=== PATIENT | female | born 1995 | race Caucasian/White ===

== ENCOUNTER 2020-03-01 19:39 | Emergency (ER) | payer OTHER, SELFPAY ==
--- NOTE | ~2020-03-01 | CT_ITS ---
EXAMINATION: CT abdomen pelvis w con EXAM DATE: 03/01/2020 22:01 INDICATION: Lower abdominal pain. TECHNIQUE: Spiral CT of the abdomen and pelvis was performed following intravenous injection of 100 m L Omnipaque 350. Axial, coronal and sagittal images were reviewed. The dose-length product (DLP) fo r this examination was 802.11 mGy-cm. The exposure was tailored according to patient size (auto mA e xposure control), and iterative reconstruction (ASIR) was used as additional dose reduction technique . There is no prior study for comparison. FINDINGS: The liver, spleen, adrenal glands and pancreas are unremarkable. Gallbladder is unremarkab le. No biliary obstruction. Portal and splenic veins are patent. Kidneys enhance symmetrically. T here is no hydronephrosis. The uterus is anteverted and morphologically normal. The bladder is un remarkable. There is no retroperitoneal or pelvic lymphadenopathy. The appendix is not positively visualized. There is no pericecal inflammatory change to suggest appe ndicitis. The stomach and small bowel are unremarkable. There is expected amount of colonic stool. No free intraperitoneal gas. The heart is normal in size. There are no pericardial or pleural e ffusions. The lung bases are unremarkable. The bones are unremarkable. IMPRESSION: 1. Unremarkable CT abdomen pelvis examination. Reviewed, dictated and finalized at location A.
[2020-03-01 19:46] VITALS: BP 135/79; PULSE 93; RESP 19; TEMP 36.8; O2SAT 99
[2020-03-01 20:01] LABS: Basophils Absolute Auto 0.1 K/mm3 (0.0-0.1); Basophils Percent Auto 0.6 % (0.2-1.2); Eosinophils Absolute Auto 0.2 K/mm3 (0-0.3); Eosinophils Percent Auto 1.9 % (0-4.4); Hematocrit 44.5 % (37.0-47.0); Hemoglobin 13.9 g/dL (12.0-15.0); Immature Granulocyte Absolute 0.03 K/mm3 (0.00-0.031); Immature Granulocyte Percent A 0.3 % (0-0.5); Lymphocytes Absolute Auto 2.95 K/mm3 (0.9-3.2); Lymphocytes Percent Auto 30.6 % (18.3-44.2); Mean Corpuscular HGB Conc 31.2 g/dl (32-36); Mean Corpuscular Hemoglobin 25.4 pg (26-34); Mean Corpuscular Volume 81.2 fl (80-100); Mean Platelet Volume 10.4 fl (7.4-10.4); Monocytes Absolute Auto 0.7 K/mm3 (0.1-0.6); Monocytes Percent Auto 7.5 % (2.6-8.5); Neutrophils Absolute Auto 5.7 K/mm3 (1.3-6.7); Neutrophils Percent Auto 59.1 % (45.5-73.1); Platelet Count Result 258 k/mm3 (150-375); Red Blood Count 5.48 M/mm3 (4.2-5.4); Red Cell Distribution Width 13.3 % (11.5-14.5); White Blood Count 9.6 K/mm3 (4.5-10.0)
[2020-03-01 20:14] LABS: Alanine Aminotransferase 13 U/L (4-35); Albumin Level 4.3 g/dL (3.5-5.1); Alkaline Phosphatase 85 U/L (38-126); Anion Gap 10.9 mmol/L (7-16); Aspartate Amino Transferase 18 U/L (14-36); Bilirubin,Total 0.3 mg/dL (0.2-1.3); Blood Urea Nitrogen 12 mg/dL (7-17); Calcium 9.3 mg/dL (8.4-10.2); Carbon Dioxide 27 mmol/L (22-30); Chloride 105 mmol/L (98-107); Estimated Glomerular Filt Rate > 60; Glucose 86 mg/dL (65-105); Lipase 45 U/L (23-300); Potassium 3.9 mmol/L (3.4-5.0); Sodium 139 mmol/L (137-145)
--- NOTE | 2020-03-01 20:18 | ED.ABDPAIN ---
HPI - Abdominal Pain General Chief Complaint: Abdominal Pain Stated Complaint: abdominal pain Time Seen by Provider: 03/01/20 20:17 History of Present Illness HPI narrative: Abdominal pain for the past couple of month. Originally lower then moved up the abdomen. Now generalized. No exacerbating or alleviating factors. No nausea, vomiting, diarrhea, constipation. She has a streong family h/o gall bladder disease. Related Data Allergies Allergy/AdvReac Type Severity Reaction Status Date / Time AMOXICILLIN TRIHYDRATE Allergy Severe Rash Uncoded 03/01/20 20:16 Review of Systems Review of Systems: All systems reviewed & are unremarkable except as noted in HPI and below Constitutional: Constitutional: Reports fever(s) Cardiovascular: Cardiovascular: Reports chest pain Respiratory: Respiratory: Denies dyspnea Gastrointestinal: Gastrointestinal: Reports abdominal pain, Denies constipation, Denies diarrhea, Denies nausea and Denies vomiting Genitourinary: Genitourinary: Denies hematuria and Denies dysuria Musculoskeletal: Musculoskeletal: Denies back pain [facility] Social History Social History (Updated 03/01/20 @ 21:20 by Montrell Kidd MD) Smoking status: Never smoker Exam Const: General: healthy appearing, no acute distress and alert Orientation/consciousness: patient oriented x3 HENMT: Head: normal to inspection Neck: Neck: normal visual inspection and no lymphadenopathy Chest: Chest palpation & inspection: no tenderness Resp: Effort & Inspection: normal respiratory effort Auscultation: clear to auscultation bilaterally, no rales, no rhonchi and no wheezes Cardio: Jugular venous distension: no JVD Rate: regular rate Rhythm: regular rhythm Heart sounds: no murmurs GI: Inspection: non-distended GI Palp: Yes Soft to palpation and No Tenderness to palpation present (GI) Skin: General skin exam: normal color Neuro: General: patient oriented x3 and moves all extremities Speech: normal speech Extrem: General: no edema Psych: Appearance: well kempt Affect: normal affect Course Vital Signs Vital signs: Vital Signs Temperature 36.8 C 03/01/20 19:46 Pulse Rate 93 03/01/20 19:46 Respiratory Rate 19 03/01/20 19:46 Blood Pressure 135/79 03/01/20 19:46 Pulse Oximetry 99 03/01/20 19:46 Temperature 36.8 C 03/01/20 19:46 Pulse Rate 75 03/01/20 23:23 Respiratory Rate 16 03/01/20 23:23 Blood Pressure 111/75 03/01/20 23:23 Pulse Oximetry 99 03/01/20 23:23 MDM - Abdominal Pain Differential Diagnosis Differential diagnosis: Likely other (GERD, IBS, biliary colic) Medical Records Attestation: I reviewed the patient's medical records. Lab Data Attestation: I reviewed the patient's lab results. Result diagrams: 03/01/20 19:49 03/01/20 19:49 Labs: Lab Results 03/01/20 03/01/20 03/01/20 Range/Units 19:49 19:49 20:07 WBC 9.6 (4.5-10.0) K/mm3 RBC 5.48 H (4.2-5.4) M/mm3 Hgb 13.9 (12.0-15.0) g/dL Hct 44.5 (37.0-47.0) % MCV 81.2 (80-100) fl MCH 25.4 L (26-34) pg MCHC 31.2 L (32-36) g/dl RDW 13.3 (11.5-14.5) % Plt Count 258 (150-375) k/mm3 MPV 10.4 (7.4-10.4) fl Immature Gran % (Auto) 0.3 (0-0.5) % Neut % (Auto) 59.1 (45.5-73.1) % Lymph % (Auto) 30.6 (18.3-44.2) % [place] % (Auto) 7.5 (2.6-8.5) % Eos % (Auto) 1.9 (0-4.4) % Baso % (Auto) 0.6 (0.2-1.2) % Lymph # (Auto) 2.95 (0.9-3.2) K/mm3 [place] # (Auto) 0.7 H (0.1-0.6) K/mm3 Eos # (Auto) 0.2 (0-0.3) K/mm3 Baso # (Auto) 0.1 (0.0-0.1) K/mm3 Abs Immat Gran (auto) 0.03 (0.00-0.031) K/mm3 Absolute Neuts (auto) 5.7 (1.3-6.7) K/mm3 Absolute Nucleated RBC 0.0 (0.0-0.012) K/mm3 Nucleated RBC % 0.0 (0.0-0.2) % Sodium 139 (137-145) mmol/L Potassium 3.9 (3.4-5.0) mmol/L Chloride 105 (98-107) mmol/L Carbon Dioxide 27 (22-30) mmol/L Anion Gap 10.9 (7-16) mmo
[2020-03-01 20:20] VITALS: PULSE 75; RESP 18; O2SAT 100
[2020-03-01 20:22] VITALS: BP 120/79
[2020-03-01 20:23] LABS: Add Urine Microscopic? YES; Appearance Urine Clear (Clear); Bacteria Urine Trace /hpf; Bilirubin Urine Negative (Negative); Blood Urine 2+ (Negative); Color Urine Yellow (Yellow); Glucose Urine UA Negative (Negative); Ketones Urine Negative (Negative); Leukocyte Esterase Ur Negative LEU/UL (Negative); Mucus Urine Rare /lpf; Nitrate Urine Negative (Negative); Protein Urine Negative (Negative); Specific Grav Ur 1.023 (1.001-1.035); Squamous Epithelial Cell Urine Many /hpf (Few); Urobilinogen Urine Negative mg/dL (<2.0); WBC Urine 0-3 /hpf
[2020-03-01 22:28] VITALS: BP 116/74; PULSE 67; RESP 18; O2SAT 99
[2020-03-01] MEDS: DICYCLOMINE HCL INJ 20 MG/2 ML VIAL IM (22:35)
[2020-03-01 23:23] VITALS: BP 111/75; PULSE 75; RESP 16; O2SAT 99
== END 2020-03-01 23:24 | disposition home or self-care (01) ==
PROVIDERS: Emergency Provider Emergency Medicine
DX: R10.84 Generalized abdominal pain (principal)
CPT/HCPCS: 36415; 74177; 80053; 81001; 81025; 83690; 85025; 96372; 99284; A9270; J0500; Q9967

== ENCOUNTER 2020-10-08 20:26 | Emergency (ER) | payer OTHER, SELFPAY ==
--- NOTE | ~2020-10-08 | CT_ITS ---
EXAMINATION: CT abdomen pelvis w con DATE: 10/08/2020 21:32 INDICATION: Right lower quadrant abdominal pain. TECHNIQUE: Computed tomography (CT) of the abdomen and pelvis was performed with 100 mL Omnipaque 350 intravenous contrast. Automated exposure control and iterative reconstruction technique were employe d. The dose-length product was 1006.49 mGy-cm. COMPARISON: CT abdomen and pelvis 03/01/2020 FINDINGS: The visualized portions of the lung bases are clear without pneumonia or pleural effusion. The heart size is normal. No pericardial effusion. The liver, gallbladder, spleen, pancreas, adrenal glands, and kidneys are normal. There is a 4.0 cm cyst in right ovary, likely a follicular cyst. Ther e is fat stranding around an epiploic appendage of ascending colon, consistent with epiploic appendag itis. The appendix is normal. There are no pathologically enlarged lymph nodes. There is no free intr aperitoneal fluid. There is mild lumbar spondylosis. IMPRESSION: 1. Epiploic appendagitis of the ascending colon. Reviewed, dictated and finalized at location A.
[2020-10-08 20:31] VITALS: BP 107/90; PULSE 98; RESP 16; TEMP 36.8; O2SAT 97
--- NOTE | 2020-10-08 20:42 | ED.ABDPAIN ---
HPI - Abdominal Pain General Chief Complaint: Abdominal Pain Stated Complaint: RLQ pain Time Seen by Provider: 10/08/20 20:33 History of Present Illness HPI narrative: Moderate RLQ pain for the past 2 days. Started after lifting a friend to pop their back. She reports that she felt a pop in her abdomen ever since. It is worse with moving and lying flat on her back. denies any associated symptoms. No prior episodes. Related Data Allergies Allergy/AdvReac Type Severity Reaction Status Date / Time AMOXICILLIN TRIHYDRATE Allergy Severe Rash Uncoded 03/01/20 20:16 Review of Systems Review of Systems: All systems reviewed & are unremarkable except as noted in HPI and below Constitutional: Constitutional: Denies fever(s) Cardiovascular: Cardiovascular: Reports no additional cardiovascular complaints Respiratory: Respiratory: Reports no additional respiratory complaints Gastrointestinal: Gastrointestinal: Reports abdominal pain, Denies constipation, Denies diarrhea, Denies nausea and Denies vomiting Genitourinary: Genitourinary: Denies hematuria and Denies dysuria Neurologic: Reports system reviewed and no additional complaints, except as documented [facility] Social History Social History Smoking status: Never smoker Exam Const: General: healthy appearing, no acute distress and alert Orientation/consciousness: patient oriented x3 HENMT: Head: normal to inspection Neck: Neck: normal visual inspection Resp: Effort & Inspection: normal respiratory effort Auscultation: clear to auscultation bilaterally, no rales, no rhonchi and no wheezes Cardio: Jugular venous distension: no JVD Rate: regular rate Rhythm: regular rhythm Heart sounds: no murmurs GI: Inspection: non-distended GI Palp: Yes Soft to palpation, Yes Tenderness to palpation present (GI) (RLQ), No Guarding due to palpation present (GI) and No Rebound tenderness present Auscultation: normal bowel sounds Skin: General skin exam: normal color Neuro: General: patient oriented x3 and moves all extremities Speech: normal speech Extrem: General: no edema Psych: Appearance: well kempt Affect: normal affect Course Vital Signs Vital signs: Vital Signs Temperature 36.8 C 10/08/20 20:31 Pulse Rate 98 10/08/20 20:31 Respiratory Rate 16 10/08/20 20:31 Blood Pressure 107/90 10/08/20 20:31 Pulse Oximetry 97 10/08/20 20:31 Temperature 36.8 C 10/08/20 21:28 Pulse Rate 88 10/08/20 22:26 Respiratory Rate 18 10/08/20 22:26 Blood Pressure 112/79 10/08/20 22:26 Pulse Oximetry 100 10/08/20 22:26 MDM - Abdominal Pain Differential Diagnosis Differential diagnosis: Likely acute appendicitis, calculus of kidney, constipation and pancreatitis Medical Records Attestation: I reviewed the patient's medical records. Lab Data Attestation: I reviewed the patient's lab results. Result diagrams: 10/08/20 20:45 10/08/20 20:45 Labs: Lab Results 10/08/20 10/08/20 10/08/20 Range/Units 20:45 20:45 21:08 WBC 13.0 H (4.5-10.0) K/mm3 RBC 5.47 H (4.2-5.4) M/mm3 Hgb 14.1 (12.0-15.0) g/dL Hct 44.4 (37.0-47.0) % MCV 81.2 (80-100) fl MCH 25.8 L (26-34) pg MCHC 31.8 L (32-36) g/dl RDW 13.7 (11.5-14.5) % Plt Count 272 (150-375) k/mm3 MPV 9.9 (7.4-10.4) fl Immature Gran % (Auto) 0.5 (0-0.5) % Neut % (Auto) 65.6 (45.5-73.1) % Lymph % (Auto) 23.1 (18.3-44.2) % [place] % (Auto) 8.2 (2.6-8.5) % Eos % (Auto) 2.1 (0-4.4) % Baso % (Auto) 0.5 (0.2-1.2) % Lymph # (Auto) 2.99 (0.9-3.2) K/mm3 [place] # (Auto) 1.1 H (0.1-0.6) K/mm3 Eos # (Auto) 0.3 (0-0.3) K/mm3 Baso # (Auto) 0.1 (0.0-0.1) K/mm3 Abs Immat Gran (auto) 0.07 H (0.00-0.031) K/mm3 Absolute Neuts (auto) 8.5 H (1.3-6.7) K/mm3 Absolute Nucleated RBC 0.0 (0.0-0.012) K/mm3 Nucleated RBC % 0.2 (0.0-0
[2020-10-08 20:50] LABS: Basophils Absolute Auto 0.1 K/mm3 (0.0-0.1); Basophils Percent Auto 0.5 % (0.2-1.2); Eosinophils Absolute Auto 0.3 K/mm3 (0-0.3); Eosinophils Percent Auto 2.1 % (0-4.4); Hematocrit 44.4 % (37.0-47.0); Hemoglobin 14.1 g/dL (12.0-15.0); Immature Granulocyte Absolute 0.07 K/mm3 (0.00-0.031); Immature Granulocyte Percent A 0.5 % (0-0.5); Lymphocytes Absolute Auto 2.99 K/mm3 (0.9-3.2); Lymphocytes Percent Auto 23.1 % (18.3-44.2); Mean Corpuscular HGB Conc 31.8 g/dl (32-36); Mean Corpuscular Hemoglobin 25.8 pg (26-34); Mean Corpuscular Volume 81.2 fl (80-100); Mean Platelet Volume 9.9 fl (7.4-10.4); Monocytes Absolute Auto 1.1 K/mm3 (0.1-0.6); Monocytes Percent Auto 8.2 % (2.6-8.5); Neutrophils Absolute Auto 8.5 K/mm3 (1.3-6.7); Neutrophils Percent Auto 65.6 % (45.5-73.1); Nucleated Red Blood Cells Perc 0.2 % (0.0-0.2); Platelet Count Result 272 k/mm3 (150-375); Red Blood Count 5.47 M/mm3 (4.2-5.4); Red Cell Distribution Width 13.7 % (11.5-14.5)
[2020-10-08] MEDS: KETOROLAC 30 MG/ML VIAL (*BKC) IV PUSH (20:58)
[2020-10-08 21:01] LABS: Alanine Aminotransferase 15 U/L (4-35); Albumin Level 4.2 g/dL (3.5-5.1); Alkaline Phosphatase 94 U/L (38-126); Anion Gap 6 mmol/L (8-16); Aspartate Amino Transferase 19 U/L (14-36); Bilirubin,Total 0.2 mg/dL (0.2-1.3); Blood Urea Nitrogen 9 mg/dL (7-17); Carbon Dioxide 31 mmol/L (22-30); Chloride 103 mmol/L (98-107); Estimated CRCL calculation 147 ml/min; Estimated Glomerular Filt Rate > 60; Glucose 92 mg/dL (65-105); Lipase 59 U/L (23-300); Potassium 3.7 mmol/L (3.4-5.0); Sodium 140 mmol/L (137-145)
[2020-10-08 21:19] LABS: Add Urine Microscopic? YES; Appearance Urine Clear (Clear); Bacteria Urine Trace /hpf; Bilirubin Urine Negative (Negative); Blood Urine Negative (Negative); Color Urine Yellow (Yellow); Glucose Urine UA Negative (Negative); Ketones Urine Negative (Negative); Leukocyte Esterase Ur Negative LEU/UL (Negative); Mucus Urine Rare /lpf; Nitrate Urine Negative (Negative); Protein Urine Negative (Negative); RBC Urine 0-2 /hpf (0-2); Specific Grav Ur 1.015 (1.001-1.035); Squamous Epithelial Cell Urine Few /hpf (Few); Urobilinogen Urine Negative mg/dL (<2.0); WBC Urine 0-3 /hpf
[2020-10-08 21:28] VITALS: TEMP 36.8
[2020-10-08 21:31] VITALS: BP 109/67; PULSE 95; RESP 18; O2SAT 96
[2020-10-08 22:26] VITALS: BP 112/79; PULSE 88; RESP 18; O2SAT 100
== END 2020-10-08 22:27 | disposition home or self-care (01) ==
PROVIDERS: Emergency Provider Emergency Medicine; PCP Physician Assistant
DX: K65.4 Sclerosing mesenteritis (principal); K63.89 Other specified diseases of intestine
CPT/HCPCS: 36415; 74177; 80053; 81001; 81025; 83690; 85025; 96374; 99284; J1885; Q9967

== ENCOUNTER 2021-01-15 13:11 | Outpatient (CLI) | payer OTHER, SELFPAY | END 2021-01-15 13:12 | disposition home or self-care (01) | LOC: ANHAUDIO 13:12 | PROVIDERS: PCP Physician Assistant; Visit Provider Otolaryngology | DX: H91.90 Unspecified hearing loss, unspecified ear (principal) | CPT/HCPCS: 92552; 92556; 92567 ==

== ENCOUNTER 2022-03-16 20:04 | Emergency (ER) | payer OTHER, SELFPAY ==
--- NOTE | ~2022-03-16 | CT_ITS ---
EXAMINATION: CT abdomen pelvis w con DATE: 03/16/2022 21:57 INDICATION: Right upper quadrant abdominal pain. TECHNIQUE: Computed tomography (CT) of the abdomen and pelvis was performed with 100 mL Omnipaque 350 intravenous contrast. Automated exposure control and iterative reconstruction technique were employe d. The dose-length product was 1112.07 mGy-cm. COMPARISON: CT abdomen and pelvis 10/08/2020 FINDINGS: The visualized portions of the lung bases are clear without pneumonia or pleural effusion. The heart size is normal. No pericardial effusion. The liver, gallbladder, spleen, pancreas, adrenal glands, and kidneys are normal. There are no dilated loops of bowel. The appendix is normal. There ar e no pathologically enlarged lymph nodes. There is no free intraperitoneal fluid. The bones are unrem arkable. IMPRESSION: 1. No etiology for the patient's symptoms. Reviewed, dictated and finalized at location A.
[2022-03-16 20:05] VITALS: BP 111/91; PULSE 94; RESP 16; TEMP 36.1; O2SAT 100
--- NOTE | 2022-03-16 20:54 | ED.ABDPAIN ---
HPI - Abdominal Pain General Chief Complaint: Abdominal Pain Stated Complaint: stomach is hurting bad Time Seen by Provider: 03/16/22 20:43 History of Present Illness HPI narrative: 26-year-old female presents emergency room for evaluation of right upper quadrant pain has been present for 2 weeks. Patient states the pain is worse after eating. Does not radiate. Denies fevers. Patient states she has a family history of gallbladder disease. Pain is associated with nausea. Denies any diarrhea or constipation. Related Data Allergies Allergy/AdvReac Type Severity Reaction Status Date / Time AMOXICILLIN TRIHYDRATE Allergy Severe Rash Uncoded 03/16/22 20:04 Review of Systems Review of Systems: CONSTITUTIONAL: Denies fever, chills, or sweats. EYES: Denies visual changes, redness, or discharge. ENT: Denies rhinorrhea, congestion, sore throat, or otalgia. CARDIOVASCULAR: Denies chest pain, palpitations, or edema. RESPIRATORY: Denies cough or dyspnea. GASTROINTESTINAL: Reports right upper quadrant pain and nausea GENITOURINARY: Denies dysuria or hematuria. SKIN: Denies rash or itching. MUSCULOSKELETAL: Denies back pain, joint pain, or myalgia. NEUROLOGIC: Denies headache, numbness, dizziness, or weakness. PSYCHIATRIC: Denies anxiety or depression. Exam Narrative: GENERAL: Well-appearing, well-nourished, no physical limitations, and in no acute distress. HEAD: Normocephalic, atraumatic. EYES: Conjunctivae normal, PERRLA and EOMI. CHEST: Clear to auscultation. No respiratory distress. No wheezes rales or rhonchi. No tenderness. HEART: Regular rate and rhythm. No murmur heard. Normal peripheral pulses. ABDOMEN: Soft, right upper quadrant tenderness, morbid obesity, normal active bowel sounds. EXTREMITIES: Normal range of motion. No edema. No clubbing or cyanosis SKIN: Warm, dry, no rash. No noted wounds NEURO: No focal deficits. Alert and oriented x3. MAEW. CN's II-XI intact bilaterally, normal gait PSYCH: Cooperative. Normal mood and affect. Course Vital Signs Vital signs: Vital Signs Temperature 36.1 C L 03/16/22 20:05 Pulse Rate 94 03/16/22 20:05 Respiratory Rate 16 03/16/22 20:05 Blood Pressure 111/91 H 03/16/22 20:05 Pulse Oximetry 100 03/16/22 20:05 Temperature 36.1 C L 03/16/22 20:05 Pulse Rate 74 03/16/22 21:32 Respiratory Rate 17 03/16/22 21:32 Blood Pressure 111/91 H 03/16/22 20:05 Pulse Oximetry 100 03/16/22 21:32 MDM - Abdominal Pain MDM Narrative Medical decision making narrative: 26-year-old female presented the emergency room complaints of right upper quadrant abdominal pain for several days. CT scan shows no evidence of acute intra-abdominal process. No evidence of hiatal hepatobiliary disease, or infectious process. Patient likely experiencing functional abdominal pain. Scalp films of the CT scan show increased amount of bowel gas which could also be the cause of her abdominal pain. Will have patient follow-up with her primary care physician. Lab Data Attestation: I reviewed the patient's lab results. Result diagrams: 03/16/22 21:07 03/16/22 21:07 Labs: Lab Results 03/16/22 03/16/22 03/16/22 Range/Units 20:49 21:07 21:07 WBC 10.6 H (4.5-10.0) K/mm3 RBC 5.04 (4.2-5.4) M/mm3 Hgb 12.6 (12.0-15.0) g/dL Hct 40.9 (37.0-47.0) % MCV 81.2 (80-100) fl MCH 25.0 L (26-34) pg MCHC 30.8 L (32-36) g/dl RDW 14.8 H (11.5-14.5) % Plt Count 265 (150-375) k/mm3 MPV 10.0 (7.4-10.4) fl Immature Gran % (Auto) 0.3 (0-0.5) % Neut % (Auto) 58.7 (45.5-73.1) % Lymph % (Auto) 30.0 (18.3-44.2) % [place] % (Auto) 7.6 (2.6-8.5) % Eos % (Auto) 2.9 (0-4.4) % Baso % (Auto) 0.5 (0.2-1.2) % Lymph # (Auto) 3.19 (0.9-3.2) K/mm3 [place] # (Auto) 0.8 H (0.1-0.6) K/mm3 Eos # (Auto) 0.3 (0-0.3) K/mm3 Baso # (Auto) 0.1 (0.0-0.1) K/mm3 Abs Immat Gran (auto) 0.03 (0.00-0.031)
[2022-03-16 20:56] LABS: Appearance Urine Clear (Clear); Bilirubin Urine Negative (Negative); Blood Urine Negative (Negative); Color Urine Yellow (Yellow); Glucose Urine UA Negative (Negative); Ketones Urine Negative (Negative); Leukocyte Esterase Ur Negative LEU/UL (Negative); Nitrate Urine Negative (Negative); Protein Urine Negative (Negative); Specific Grav Ur 1.025 (1.001-1.035); Urobilinogen Urine 0.2 mg/dL (<2.0)
[2022-03-16 20:59] LABS: Add Urine Microscopic? YES; Bacteria Urine Trace /hpf; Mucus Urine Rare /lpf; RBC Urine 0-2 /hpf (0-2); Squamous Epithelial Cell Urine Rare /hpf (Few); WBC Urine 0-3 /hpf
[2022-03-16] MEDS: SODIUM CHLORIDE 0.9% IV 1,000 ML 999 ML IV CONT (21:08)
[2022-03-16 21:12] LABS: Basophils Absolute Auto 0.1 K/mm3 (0.0-0.1); Basophils Percent Auto 0.5 % (0.2-1.2); Eosinophils Absolute Auto 0.3 K/mm3 (0-0.3); Eosinophils Percent Auto 2.9 % (0-4.4); Hematocrit 40.9 % (37.0-47.0); Hemoglobin 12.6 g/dL (12.0-15.0); Immature Granulocyte Absolute 0.03 K/mm3 (0.00-0.031); Immature Granulocyte Percent A 0.3 % (0-0.5); Lymphocytes Absolute Auto 3.19 K/mm3 (0.9-3.2); Mean Corpuscular HGB Conc 30.8 g/dl (32-36); Mean Corpuscular Volume 81.2 fl (80-100); Monocytes Absolute Auto 0.8 K/mm3 (0.1-0.6); Monocytes Percent Auto 7.6 % (2.6-8.5); Neutrophils Absolute Auto 6.2 K/mm3 (1.3-6.7); Neutrophils Percent Auto 58.7 % (45.5-73.1); Platelet Count Result 265 k/mm3 (150-375); Red Blood Count 5.04 M/mm3 (4.2-5.4); Red Cell Distribution Width 14.8 % (11.5-14.5); White Blood Count 10.6 K/mm3 (4.5-10.0)
[2022-03-16 21:26] LABS: Alanine Aminotransferase 12 U/L (6-35); Albumin Level 4.3 g/dL (3.5-5.1); Alkaline Phosphatase 97 U/L (38-126); Anion Gap 9 mmol/L (8-16); Aspartate Amino Transferase 17 U/L (14-36); Bilirubin,Total 0.2 mg/dL (0.2-1.3); Blood Urea Nitrogen 11 mg/dL (7-17); Carbon Dioxide 27 mmol/L (22-30); Chloride 104 mmol/L (98-107); Estimated CRCL calculation 119 ml/min; Estimated Glomerular Filt Rate > 60; Glucose 96 mg/dL (65-110); Lipase 49 U/L (23-300); Potassium 3.6 mmol/L (3.4-5.0); Sodium 140 mmol/L (137-145)
[2022-03-16 21:32] VITALS: PULSE 74; RESP 17; O2SAT 100
--- NOTE | 2022-03-16 21:46 | PC.NURSE ---
Patient taken to CT via stretcher.
[2022-03-16 22:12] LABS: Lactic Acid Reflex 1.4 mmol/L (0.7-2.0)
[2022-03-16 22:46] VITALS: BP 121/76; PULSE 60; RESP 17; O2SAT 100
== END 2022-03-16 22:47 | disposition home or self-care (01) ==
PROVIDERS: Emergency Medicine; Emergency Provider Nurse Practitioner Family; PCP Physician Assistant
DX: R10.11 Right upper quadrant pain (principal)
CPT/HCPCS: 36415; 74177; 80053; 81001; 81025; 83605; 83690; 85025; 96360; 99284; J7030; Q9967

== ENCOUNTER 2022-07-30 15:25 | Emergency (ER) | payer OTHER, SELFPAY ==
--- NOTE | ~2022-07-30 | CT_ITS ---
EXAMINATION: CT brain wo con DATE: 07/30/2022 16:03 INDICATION: Headache. TECHNIQUE: Computed tomography (CT) of the head was performed without intravenous contrast. The mA wa s adjusted according to patient size. Iterative reconstruction technique was employed. The dose-lengt h product was 529.67 mGy-cm. COMPARISON: None FINDINGS: There is no intracranial hemorrhage, acute infarction, or abnormal intracranial mass lesion . The ventricles are normal in size. The orbits are normal. The paranasal sinuses are clear. The mast oid air cells are normal. IMPRESSION: 1. Normal brain. Reviewed, dictated and finalized at location A. L RIGHTS ATTORNEY IMPRESSION: 1. Normal brain.
[2022-07-30 15:46] VITALS: BP 120/81; PULSE 82; RESP 16; TEMP 36.6; O2SAT 99
== END 2022-07-30 16:48 | disposition left against medical advice (07) ==
LOC: ANHED 17:11
PROVIDERS: Emergency Provider Emergency Medicine; PCP Physician Assistant
DX: R51.9 Headache, unspecified (principal)
CPT/HCPCS: 70450; 99199

== ENCOUNTER 2025-02-27 17:53 | Observation (INO) | payer OTHER, SELFPAY ==
--- NOTE | ~2025-02-27 | XR_ITS ---
XR abdomen/kub 1V 02/28/2025 02:17 Indication: Ureteral stone Procedure: KUB Comparison: CT dated 02/27/2025 Findings: There is mild right hydronephrosis with stranding, contrast throughout the renal collecting system and ureter to the UVJ. Bowel gas pattern nonobstructive. There is contrast in the left renal collecting system is well, although nondilated. Impression: 1: Mild right hydronephrosis. Reviewed, dictated and finalized at location A. Impression: 1: Mild right hydronephrosis.
--- NOTE | ~2025-02-27 | XR_ITS ---
EXAMINATION: XR retrograde pyelo w/stent RT DATE: 02/28/2025 13:15 INDICATION: Right internal ureteral stent placement TECHNIQUE: Fluoroscopic images from a right internal ureteral stent placement are submitted for kristy proctor 23 seconds of fluoroscopy time. FINDINGS: There is a right double-J internal ureteral stent projecting in expected position, with proximal Pierre loop at the level of the renal pelvis and distal loop in the pelvis within the bladder lumen. IMPRESSION: 1. Right internal ureteral stent placement. Please refer to real-time procedural findings for detai ls. Reviewed, dictated and finalized at location A. IMPRESSION: 1. Right internal ureteral stent placement. Please refer to real-time procedu ral findings for details.
--- NOTE | ~2025-02-27 | CT_ITS ---
CT of the Abdomen and Pelvis: Indication: Abdominal pain Technique: 2.5 mm axial scans were obtained through the abdomen and pelvis following intravenous adm inistration of 100 cc of Omnipaque 350. Dose reduction technique was used on this scan by utilizing a utomated exposure control and iterative reconstruction technique. The dose-length product (DLP) was 1 296.73 mGy-cm. COMPARISON: 03/16/2022 Findings: Scans through the lung bases are unremarkable. The liver, spleen, pancreas, and adrenal glands are within normal limits. Gallbladder absent. No evid ence of aortic aneurysm. 5 mm stone present at the right UVJ region with mild right hydroureteronephr osis. 4 mm nonobstructing left renal stone present. No lymphadenopathy. No bowel obstruction or bowel wall thickening. There is no evidence to suggest acute appendicitis. Images through the pelvis were performed. Urinary bladder unremarkable. No pelvic mass seen. No ascit es. Impression: 5 mm right UVJ stone with mild right hydroureteronephrosis. 4 mm nonobstructing left renal stone. Reviewed, dictated and finalized at location M. Impression: 5 mm right UVJ stone with mild right hydroureteronephrosis. 4 mm nonobstructing left renal stone.
--- OUTSIDE RECORDS SUMMARY | 2025-02-27 17:55 | XMS_ITS | Clinical Summary ---
Author Organization [facility] Address [address] [place] [address] Care Team Providers Care Practicing Md Anesthesiologist Name Role Phone Angelito Tapia MD Primary Care Provider [phone] [facility],non-owned Affiliates and Associated Physician Practices is amultiple site organization consisting of ambulatory clinics and hospital sitesin [place], [place], [place] and [place]. This disclosure is being madepursuant to the Care Everywhere program and may not contain all information available regarding this patient. Last updated 18.[facility] Allergies Active Allergy Reactions Criticality Noted Date Comments Amoxicillin Rash Medium 01/01/2018 Medications * Be aware that medications may not be up to date on this document. Alwaysverify current medications with the patient. OtherIndications: oral contraceptive Reasons: oral contraceptive Active triamcinolone acetonide (KENALOG) 0.1 % creamIndications: Contact dermatitis, unspecified contact dermatitis type, unspecified trigger Apply to affected area 3 times daily 80 g 01/02/20 18 Active Active Problems No known active problems Social History Tobacco Use Types Packs/Day Years Used Date Smoking Tobacco: Never Smokeless Tobacco: Never Comments Unknown Sex and Gender Information Value Date Recorded Sex Assigned at Not on file Legal Sex Female 12:39 PM CDT Gender Identity Not on file Sexual Orientation Not on file Last Filed Vital Signs Vital Sign Reading Time Taken Comments Blood Pressure 116/68 01/01/2018 12:49 PM CDT Pulse 108 01/01/2018 12:49 PM CDT Temperature 36.9 C (98.4 F) 01/01/2018 12:49 PM CDT Respiratory Rate 16 01/01/2018 12:49 PM CDT Oxygen Saturation 97% 01/01/2018 12:49 PM CDT Inhaled Oxygen Concentration - - Weight 90.7 kg (200 lb) 01/01/2018 12:49 PM CDT Height 167.6 cm (5' 6) 01/01/2018 12:49 PM CDT Body Mass Index 32.28 01/01/2018 12:49 PM CDT Plan of Treatment Health Maintenance Due Date Last Done Comments HIV SCREENING 2011 HEPATITIS C SCREENING 08/20/2014 DTAP/TDAP/TD VACCINES (1 - Tdap) 2015 HEPATITIS B VACCINE (1 of 3 - 19+ 3-dose series) 2015 HPV VACCINE (1 - 3-dose SCDM series) 2023 COVID-19 VACCINE (1 - 2023-2 5 season) 2024 DEPRESSION SCREENING 07/28/2024 INFLUENZA VACCINE (#1) 2025 ZOSTER VACCINE (1 of 2) 2046 HIB VACCINE Aged Out No longer eligi ble based on patient's age to complete this topic MENINGOCOCCAL (Group B) VACC INE SHARED DECISION-MAKING Aged Out No longer eligibl e based on patient's age to complete this topic MENINGOCOCCAL GROUPS A/C/Y/W VACCINE Aged Out No longer eligible b ased on patient's age to complete this topic PNEUMOCOCCAL VACCINE Aged Out No long er eligible based on patient's age to complete [place] [address] [facility] [employer] Care Teams Practicing Md Anesthesiologist Relationship Specialty Start Date End Date Angelito Tapia MD [address] [place] [id number] PCP - General 12/14/18
--- OUTSIDE RECORDS SUMMARY | 2025-02-27 17:55 | XMS_ITS | Clinical Summary ---
Author Organization [facility] Address [address] [place] [address] Phone Care Team Providers Care Bolt Labeler Name Role Phone Laura Sinha PAC Primary Care Provider [phone] Lora Ryan RUBBER PRESS OPERATOR, STUDIO OPERATOR Unavailable [phone] Allergies Active Allergy Reactions Criticality Noted Date Comments Amoxicillin Rash 06/04/2021 Medications naproxen (NAPROSYN) 500 MG Tablet Take 1 Tablet by mouth 2 times daily (with meals). 60 Tablet 07/13/2021 Active Atogepant (Qulipta) 60 MG TabletIndication s:Chronic migraine with aura without status migrainosus, not intractable Take 1 Tablet by mouth nightly. 30 Tablet 2 02/23/2024 Active Ubrogepant (Ubrelvy) 50 MG TabletIndication s:Chronic migraine with aura without status migrainosus, not intractable Take 1 Tablet by mouth once as needed for Other for up to 1 dose. 10 Tablet 2 02/23/2024 Active Active Problems No known active problems Family History Medical History Relation Name Comments High Cholesterol Father Hypertension Father Heart Disease Mother Osteoporosis Mother Migraines Sister Relation Name Status Comments Father Alive Mother Alive Sister Social History Tobacco Use Types Packs/Day Years Used Date Smoking Tobacco: Never Smokeless Tobacco: Never Tobacco Cessation:Counseling Given: Not Answered Alcohol Use Standard Drinks/Week Comments Not Currently 0 (1 standard drink = 0.6 oz pur e alcohol) Comments No Sex and Gender Information Value Date Recorded Sex Assigned at Not on file Legal Sex Female 8:54 PM CDT Gender Identity Not on file Sexual Orientation Not on file Last Filed Vital Signs Vital Sign Reading Time Taken Comments Blood Pressure 110/72 02/23/2024 9:55 AM CDT Pulse 70 02/23/2024 9:55 AM CDT Temperature 36.4 C (97.5 F) 02/23/2024 9:55 AM CDT Respiratory Rate 16 02/23/2024 9:55 AM CDT Oxygen Saturation 97% 02/23/2024 9:55 AM CDT Inhaled Oxygen Concentration - - Weight 113.9 kg (251 lb) 02/23/2024 9:55 AM CDT Height 167.6 cm (5' 6) 02/23/2024 9:55 AM CDT Body Mass Index 40.51 02/23/2024 9:55 AM CDT Plan of Treatment Health Maintenance Due Date Last Done Comments Hepatitis C Virus (HCV) Screening 1996 Pap Smear 2017 SARS-COV-2 Immunization ( season) 2024 Influenza Immunization (#1) 2025 04/27/2018, 1 08/10/2016 Respiratory Syncytial Virus (RSV) Immunization (Adult) (1 - 1-dose 75+ series) 2071 Hepatitis B Immunization Completed 997, 1996, 1996 Meningococcal Immunization (ACWY) Aged Out 06/10/2017 No longer eligible based on patient's age to complete this topic Human Papillomavirus (HPV) Immunization Completed 03/23/2018, 11/14/2017, 06/10/2017 DTaP/Tdap/Td Immunization Discontinued 2020, 06/10/2017, 04/22/2002, Additional history exists TdaP Immunization Completed 01/08/2021, 06/10/2017 Pneumococcal Immunization Combined Aged Out No longer eligible based on patient's age to complete this topic Rotavirus Immunization Aged Out No lo nger eligible based on patient's age to complete this topic Insurance [employer] Care Teams Bolt Labeler Relationship Specialty Start Date End Date Laura Sinha, PAC [address] [place] [address] PCP - General Physician Blind Aide 06/01/21 Lora Ryan, RUBBER PRESS OPERATOR, STUDIO OPERATOR [address] [place] [address] Nurse Practitioner Advanced Practice Nurse 08/16/22
[2025-02-27 17:58] VITALS: BP 119/78; PULSE 97; RESP 20; TEMP 36.4; O2SAT 98
[2025-02-27 19:13] LABS: Hematocrit 43.8 % (37.0-47.0); Hemoglobin 13.4 g/dL (12.0-15.0); Immature Granulocyte Percent A 0.4 % (0-0.5); Lymphocytes Absolute Auto 2.09 K/mm3 (0.9-3.2); Mean Corpuscular HGB Conc 30.6 g/dl (32-36); Mean Corpuscular Hemoglobin 24.3 pg (26-34); Mean Corpuscular Volume 79.5 fl (80-100); Nucleated Red Blood Cells Absolute Auto 0.000 K/mm3 (0.0-0.012); Nucleated Red Blood Cells Perc 0.0 % (0.0-0.2); Platelet Count Result 287 k/mm3 (150-375); Red Blood Count 5.51 M/mm3 (4.2-5.4); White Blood Count 13.3 K/mm3 (4.5-10.0)
--- NOTE | 2025-02-27 19:19 | PC.NURSE ---
Provider at bedside for assessment. Pt was only able to provide a few drops of urine. Bedside preg test negative, not enough urine available for UA. Pt complaining of pain and nausea currently, waiting further orders.
[2025-02-27 19:21] LABS: BEDSIDEPREGUCG Negative (Negative)
--- NOTE | 2025-02-27 19:25 | ED.ABDPAIN ---
HPI - Abdominal Pain General Chief Complaint: Abdominal Pain <Danica Jiménez APRN - Last Filed: 02/28/25 02:15> Stated Complaint: abd pain <Danica Jiménez APRN - Last Filed: 02/28/25 02:15> Time Seen by Provider: 02/27/25 19:03 <Danica Jiménez APRN - Last Filed: 02/28/25 02:15> History of Present Illness HPI narrative: Patient is a 29-year-old female who presents to the ER with right lower quadrant abdominal pain that started around 3:30 this afternoon. She reports the pain started suddenly. Patient reports she has vomited x5. She reports her last bowel movement was earlier today and was normal. Patient denies any recent fevers, chest pain, shortness a breath, back pain, or diarrhea. She reports she is experiencing ?urinary pressure, but denies any acute urinary symptoms. Patient endorses a history of cholecystectomy and tonsillectomy. She denies any alcohol or drug use. <Danica Jiménez APRN - Last Filed: 02/28/25 02:15> Related Data Home Medications: Home Medications ?Medication ?Instructions ?Recorded ?Confirmed ?Last Taken ?Type No Home Medications 02/28/25 02/28/25 Unknown History <Danica Jiménez APRN - Last Filed: 02/28/25 02:15> Allergies/Adverse Reactions: Allergies Allergy/AdvReac Type Severity Reaction Status Date / Time AMOXICILLIN TRIHYDRATE Allergy Severe Rash Uncoded 02/27/25 18:00 <Danica Jiménez APRN - Last Filed: 02/28/25 02:15> Review of Systems Review of Systems: All systems reviewed & are unremarkable except as noted in HPI and below <Danica Jiménez APRN - Last Filed: 02/28/25 02:15> PMFSH Past Medical History Medical History: Medical History Obesity, morbid, BMI 40.0-49.9 Kidney stones <Danica Jiménez APRN - Last Filed: 02/28/25 02:15> Surgical History Surgical History: Surgical History History of laparoscopic cholecystectomy History of tonsillectomy and adenoidectomy <Danica Jiménez, HEALTH INSURANCE ASSESSOR - Last Filed: 02/28/25 02:15> Family History Family History: Family History Father Kidney stones Diabetes mellitus <Danica Jiménez, HEALTH INSURANCE ASSESSOR - Last Filed: 02/28/25 02:15> Social History Social History: Social History Social History: Patient is single and lives with her niece and a friend. She does not smoke drink or use illicit substances. She works at an [employer]. Code status: Full code Surrogate decision maker: Bernie Reed (mother) Smoking status: Never smoker Second hand tobacco smoke exposure: No Alcohol intake: never Substance use: never Substance use type: does not use Lack of Transportation: YES Lack of Food: Never True Current Housing: I Have Housing Concerned About Future Housing: No Difficulty Paying Gas/Electric Bills: No Difficulty Paying for Meds: No Currently Unemployed: No Education: High School Diploma/GED Difficulty w/ Childcare or Family Care: No Spiritual care concerns: No <Danica Jiménez, HEALTH INSURANCE ASSESSOR - Last Filed: 02/28/25 02:15> Exam Narrative: GENERAL: Ill appearing, obese, non-toxic, in acute distress due to pain. HEAD: Normocephalic, atraumatic. NECK: Supple. No adenopathy, no masses. RESPIRATORY: Airway patent, respirations nonlabored. Clear to auscultation bilaterally, no rales, rhonchi, wheezing. CARDIOVASCULAR: Regular rate and rhythm without murmurs, rubs, or gallops. Peripheral pulses 2+ and equal bilaterally. ABDOMINAL: Soft, tender, nondistended. Normoactive BS. Positive McBurney's point, positive Rovsing's sign, positive Psoas sign MUSCULOSKELETAL: Moves all extremities. Strength/ROM intact without gross deformities. SKIN: Warm, dry, normal color. No rashes. NEURO: A&O X3. Speech clear. Cranial nerves II-XII intact. No ataxic movements. PSYCHIATRIC: Tearful. Agitated. <Danica Jiménez, HEALTH INSURANCE ASSESSOR - Last Filed: 02/28/25 02:15> Course STEEL FLOOR PAN PLACING SUPERVISOR/PA Physician Supervision STEEL FLOOR PAN PLACING SUPERVISOR notified me that this patient was being admitted. I was available for consultation while patient was in the emergency department but did not personally examine them and was not otherwise directly involved in their care <Samantha Mathur MD - Last Filed: 02/28/25 09:56> Vital Signs Vital signs: Vital Signs Temperature 97.6 F 02/27/25 17:58 Pulse Rate 97 02/27/25 17:58 Respiratory Rate 20 02/27/25 17:58 Blood Pressure 119/78 02/27/25 17:58 Pulse Oximetry 98 02/27/25 17:58 Oxygen Delivery Room Air 02/27/25 17:58 Temperature 97.1 F L 02/28/25 05:39 Pulse Rate 71 02/28/25 05:39 Respiratory Rate 20 02/28/25 05:39 Blood Pressure 96/50 L 02/28/25 05:39 Pulse Oximetry 99 02/28/25 05:39 Oxygen Delivery Room Air 02/28/25 03:30 <Danica Jiménez, HEALTH INSURANCE ASSESSOR - Last Filed: 02/28/25 02:15> Vital Signs Temperature 97.6 F 02/27/25 17:58 Pulse Rate 97 02/27/25 17:58 Respiratory Rate 20 02/27/25 17:58 Blood Pressure 119/78 02/27/25 17:58 Pulse Oximetry 98 02/27/25 17:58 Oxygen Delivery Room Air 02/27/25 17:58 Temperature 97.1 F L 02/28/25 05:39 Pulse Rate 71 02/28/25 05:39 Respiratory Rate 20 02/28/25 05:39 Blood Pressure 96/50 L 02/28/25 05:39 Pulse Oximetry 99 02/28/25 05:39 Oxygen Delivery Room Air 02/28/25 03:30 <Samantha Mathur MD - Last Filed: 02/28/25 09:56> MDM - Abdominal Pain MDM Narrative Medical decision making narrative: Patient is a 29-year-old female who presents to the ER with right lower quadrant abdominal pain that started around 3:30 this afternoon. She reports the pain started suddenly. Patient reports she has vomited x5. She reports her last bowel movement was earlier today and was normal. Patient denies any recent fevers, chest pain, shortness a breath, back pain, or diarrhea. She reports she is experiencing ?urinary pressure, but denies any acute urinary symptoms. Patient endorses a history of cholecystectomy and tonsillectomy. She denies any alcohol or drug use. Labs Ordered: CBC, CMP, UA, UDS, ethanol, PTT, INR, CRP, lipase Imaging Ordered: CT abdomen pelvis Medications Ordered: 1 L normal saline IV bolus x3, Dilaudid 0.5 mg IV, morphine 4 mg IV, Zofran 4 mg IV Results: Patient's urinalysis indicates 3+ blood and 21-50 RBCs. Her CRP is 1.8. Patient's white blood cell count is 13.3, her RBCs are 5.51. Her lactic acid was negative. Patient's CT abdomen pelvis indicates patient has an obstructing 4 mm right UVJ stone with mild hydronephrosis of the right kidney. Diagnosis: Right kidney stone Consults: 0200- Consulted urology, Dr. Osorio. He advised pt receive a KUB and remain an NPO. Results of imaging and lab work shared with patient and their family. It was advised patient be admitted to the hospital for further evaluation and treatment. Patient and their family verbalized understanding and are in agreement with plan. 0215- Pt endorses ongoing pain. She is requesting more pain medication. <Danica Jiménez APRN - Last Filed: 02/28/25 02:15> Differential Diagnosis Differential diagnosis: Likely abdominal pain, acute appendicitis, calculus of kidney, gastroenteritis and small bowel obstruction <Danica Jiménez APRN - Last Filed: 02/28/25 02:15> Lab Data Attestation: I reviewed the patient's lab results. <Danica Jiménez APRN - Last Filed: 02/28/25 02:15> Result diagrams: 02/27/25 19:03 02/27/25 19:03 <Danica Jiménez APRN - Last Filed: 02/28/25 02:15> Labs: Lab Results 02/27/25 02/27/25 02/27/25 Range/Units 19:01 19:03 20:20 WBC 13.3 H (4.5-10.0) K/mm3 RBC 5.51 H (4.2-5.4) M/mm3 Hgb 13.4 (12.0-15.0) g/dL Hct 43.8 (37.0-47.0) % MCV 79.5 L (80-100) fl MCH 24.3 L (26-34) pg MCHC 30.6 L (32-36) g/dl RDW 14.3 (11.5-14.5) % Plt Count 287 (150-375) k/mm3 MPV 10.2 (7.4-10.4) fl Immature Gran % (Auto) 0.4 (0-0.5) % Neut % (Auto) 77.0 H (45.5-73.1) % Lymph % (Auto) 15.7 L (18.3-44.2) % [place] % (Auto) 5.9 (2.6-8.5) % Eos % (Auto) 0.6 (0-4.4) % Baso % (Auto) 0.4 (0.2-1.2) % Lymph # (Auto) 2.09 (0.9-3.2) K/mm3 [place] # (Auto) 0.8 H (0.1-0.6) K/mm3 Eos # (Auto) 0.1 (0-0.3) K/mm3 Baso # (Auto) 0.1 (0.0-0.1) K/mm3 Abs Immat Gran (auto) 0.06 H (0.00-0.031) K/mm3 Absolute Neuts (auto) 10.3 H (1.3-6.7) K/mm3 Absolute Nucleated RBC 0.000 (0.0-0.012) K/mm3 Nucleated RBC % 0.0 (0.0-0.2) % PT 14.4 (11.1-14.7) Seconds INR 1.1 APTT 33.8 (22.3-36.8) Seconds Sodium 138 (137-145) mmol/L Potassium 3.9 (3.4-5.0) mmol/L Chloride 102 (98-107) mmol/L Carbon Dioxide 26 (22-30) mmol/L Anion Gap 10 (4-12) mmol/L BUN 17 (7-17) mg/dL Creatinine 0.95 (0.7-1.0) mg/dL Estim Creat Clear Calc 101 ml/min Estimated GFR > 60 (59 - ) Glucose 102 (65-110) mg/dL Lactic Acid 1.2 (0.7-2.0) mmol/L Calcium 9.8 (8.4-10.2) mg/dL Total Bilirubin 0.3 (0.2-1.3) mg/dL AST 26 (14-36) U/L ALT 16 (6-35) U/L Alkaline Phosphatase 91 (38-126) U/L C-Reactive Protein 1.8 H (<1.0) mg/dL Total Protein 8.8 H (6.3-8.2) g/dL Albumin 4.7 (3.5-5.1) g/dL Lipase 46 (23-300) U/L Urine Color (Yellow) Urine Appearance (Clear) Urine pH (5.0-9.0) Ur Specific [place] (1.001-1.035) Urine Protein (Negative) mg/dL Urine Glucose (UA) (Negative) mg/dL Urine Ketones (Negative) mg/dL Ur Blood (Man) (Negative) Urine Nitrate (Negative) Urine Bilirubin (Negative) Urine Urobilinogen (<2.0) mg/dL Leukocyte Esterase Rfl (Negative) STEVE/UL Urine RBC (0-2) /hpf Urine WBC (0-3) /hpf Ur Squamous Epith Cells (Few) /hpf Urine Bacteria /hpf Urine Casts POC Urine HCG, Qual Negative (Negative) Urine Opiates Screen (Negative) Urine Methadone Screen (Negative) Ur Barbiturates Screen (Negative) Ur Phencyclidine Scrn (Negative) Ur Amphetamine Screen (Negative) U Benzodiazepines Scrn (Negative) Urine Cocaine Screen (Negative) U Cannabinoids Screen (Negative) Ethyl Alcohol < 10 (<10) mg/dL 02/27/25 Range/Units 22:59 WBC (4.5-10.0) K/mm3 RBC (4.2-5.4) M/mm3 Hgb (12.0-15.0) g/dL Hct (37.0-47.0) % MCV (80-100) fl MCH (26-34) pg MCHC (32-36) g/dl RDW (11.5-14.5) % Plt Count (150-375) k/mm3 MPV (7.4-10.4) fl Immature Gran % (Auto) (0-0.5) % Neut % (Auto) (45.5-73.1) % Lymph % (Auto) (18.3-44.2) % [place] % (Auto) (2.6-8.5) % Eos % (Auto) (0-4.4) % Baso % (Auto) (0.2-1.2) % Lymph # (Auto) (0.9-3.2) K/mm3 [place] # (Auto) (0.1-0.6) K/mm3 Eos # (Auto) (0-0.3) K/mm3 Baso # (Auto) (0.0-0.1) K/mm3 Abs Immat Gran (auto) (0.00-0.031) K/mm3 Absolute Neuts (auto) (1.3-6.7) K/mm3 Absolute Nucleated RBC (0.0-0.012) K/mm3 Nucleated RBC % (0.0-0.2) % PT (11.1-14.7) Seconds INR APTT (22.3-36.8) Seconds Sodium (137-145) mmol/L Potassium (3.4-5.0) mmol/L Chloride (98-107) mmol/L Carbon Dioxide (22-30) mmol/L Anion Gap (4-12) mmol/L BUN (7-17) mg/dL Creatinine (0.7-1.0) mg/dL Estim Creat Clear Calc ml/min Estimated GFR (59 - ) Glucose (65-110) mg/dL Lactic Acid (0.7-2.0) mmol/L Calcium (8.4-10.2) mg/dL Total Bilirubin (0.2-1.3) mg/dL AST (14-36) U/L ALT (6-35) U/L Alkaline Phosphatase (38-126) U/L C-Reactive Protein (<1.0) mg/dL Total Protein (6.3-8.2) g/dL Albumin (3.5-5.1) g/dL Lipase (23-300) U/L Urine Color Yellow (Yellow) Urine Appearance Clear (Clear) Urine pH 7.0 (5.0-9.0) Ur Specific [place] 1.011 (1.001-1.035) Urine Protein Negative (Negative) mg/dL Urine Glucose (UA) Negative (Negative) mg/dL Urine Ketones Negative (Negative) mg/dL Ur Blood (Man) 3+ H (Negative) Urine Nitrate Negative (Negative) Urine Bilirubin Negative (Negative) Urine Urobilinogen 0.2 (<2.0) mg/dL Leukocyte Esterase Rfl Negative (Negative) STEVE/UL Urine RBC 21-50 H (0-2) /hpf Urine WBC 0-5 (0-3) /hpf Ur Squamous Epith Cells None seen (Few) /hpf Urine Bacteria None seen /hpf Urine Casts 0-2 POC Urine HCG, Qual (Negative) Urine Opiates Screen Positive A (Negative) Urine Methadone Screen Negative (Negative) Ur Barbiturates Screen Negative (Negative) Ur Phencyclidine Scrn Negative (Negative) Ur Amphetamine Screen Negative (Negative) U Benzodiazepines Scrn Negative (Negative) Urine Cocaine Screen Negative (Negative) U Cannabinoids Screen Negative (Negative) Ethyl Alcohol (<10) mg/dL <Danica Jiménez, HEALTH INSURANCE ASSESSOR - Last Filed: 02/28/25 02:15> Lab Results 02/27/25 02/27/25 02/27/25 Range/Units 19:01 19:03 20:20 WBC 13.3 H (4.5-10.0) K/mm3 RBC 5.51 H (4.2-5.4) M/mm3 Hgb 13.4 (12.0-15.0) g/dL Hct 43.8 (37.0-47.0) % MCV 79.5 L (80-100) fl MCH 24.3 L (26-34) pg MCHC 30.6 L (32-36) g/dl RDW 14.3 (11.5-14.5) % Plt Count 287 (150-375) k/mm3 MPV 10.2 (7.4-10.4) fl Immature Gran % (Auto) 0.4 (0-0.5) % Neut % (Auto) 77.0 H (45.5-73.1) % Lymph % (Auto) 15.7 L (18.3-44.2) % [place] % (Auto) 5.9 (2.6-8.5) % Eos % (Auto) 0.6 (0-4.4) % Baso % (Auto) 0.4 (0.2-1.2) % Lymph # (Auto) 2.09 (0.9-3.2) K/mm3 [place] # (Auto) 0.8 H (0.1-0.6) K/mm3 Eos # (Auto) 0.1 (0-0.3) K/mm3 Baso # (Auto) 0.1 (0.0-0.1) K/mm3 Abs Immat Gran (auto) 0.06 H (0.00-0.031) K/mm3 Absolute Neuts (auto) 10.3 H (1.3-6.7) K/mm3 Absolute Nucleated RBC 0.000 (0.0-0.012) K/mm3 Nucleated RBC % 0.0 (0.0-0.2) % PT 14.4 (11.1-14.7) Seconds INR 1.1 APTT 33.8 (22.3-36.8) Seconds Sodium 138 (137-145) mmol/L Potassium 3.9 (3.4-5.0) mmol/L Chloride 102 (98-107) mmol/L Carbon Dioxide 26 (22-30) mmol/L Anion Gap 10 (4-12) mmol/L BUN 17 (7-17) mg/dL Creatinine 0.95 (0.7-1.0) mg/dL Estim Creat Clear Calc 101 ml/min Estimated GFR > 60 (59 - ) Glucose 102 (65-110) mg/dL Lactic Acid 1.2 (0.7-2.0) mmol/L Calcium 9.8 (8.4-10.2) mg/dL Total Bilirubin 0.3 (0.2-1.3) mg/dL AST 26 (14-36) U/L ALT 16 (6-35) U/L Alkaline Phosphatase 91 (38-126) U/L C-Reactive Protein 1.8 H (<1.0) mg/dL Total Protein 8.8 H (6.3-8.2) g/dL Albumin 4.7 (3.5-5.1) g/dL Lipase 46 (23-300) U/L Urine Color (Yellow) Urine Appearance (Clear) Urine pH (5.0-9.0) Ur Specific [place] (1.001-1.035) Urine Protein (Negative) mg/dL Urine Glucose (UA) (Negative) mg/dL Urine Ketones (Negative) mg/dL Ur Blood (Man) (Negative) Urine Nitrate (Negative) Urine Bilirubin (Negative) Urine Urobilinogen (<2.0) mg/dL Leukocyte Esterase Rfl (Negative) STEVE/UL Urine RBC (0-2) /hpf Urine WBC (0-3) /hpf Ur Squamous Epith Cells (Few) /hpf Urine Bacteria /hpf Urine Casts POC Urine HCG, Qual Negative (Negative) Urine Opiates Screen (Negative) Urine Methadone Screen (Negative) Ur Barbiturates Screen (Negative) Ur Phencyclidine Scrn (Negative) Ur Amphetamine Screen (Negative) U Benzodiazepines Scrn (Negative) Urine Cocaine Screen (Negative) U Cannabinoids Screen (Negative) Ethyl Alcohol < 10 (<10) mg/dL 02/27/25 Range/Units 22:59 WBC (4.5-10.0) K/mm3 RBC (4.2-5.4) M/mm3 Hgb (12.0-15.0) g/dL Hct (37.0-47.0) % MCV (80-100) fl MCH (26-34) pg MCHC (32-36) g/dl RDW (11.5-14.5) % Plt Count (150-375) k/mm3 MPV (7.4-10.4) fl Immature Gran % (Auto) (0-0.5) % Neut % (Auto) (45.5-73.1) % Lymph % (Auto) (18.3-44.2) % [place] % (Auto) (2.6-8.5) % Eos % (Auto) (0-4.4) % Baso % (Auto) (0.2-1.2) % Lymph # (Auto) (0.9-3.2) K/mm3 [place] # (Auto) (0.1-0.6) K/mm3 Eos # (Auto) (0-0.3) K/mm3 Baso # (Auto) (0.0-0.1) K/mm3 Abs Immat Gran (auto) (0.00-0.031) K/mm3 Absolute Neuts (auto) (1.3-6.7) K/mm3 Absolute Nucleated RBC (0.0-0.012) K/mm3 Nucleated RBC % (0.0-0.2) % PT (11.1-14.7) Seconds INR APTT (22.3-36.8) Seconds Sodium (137-145) mmol/L Potassium (3.4-5.0) mmol/L Chloride (98-107) mmol/L Carbon Dioxide (22-30) mmol/L Anion Gap (4-12) mmol/L BUN (7-17) mg/dL Creatinine (0.7-1.0) mg/dL Estim Creat Clear Calc ml/min Estimated GFR (59 - ) Glucose (65-110) mg/dL Lactic Acid (0.7-2.0) mmol/L Calcium (8.4-10.2) mg/dL Total Bilirubin (0.2-1.3) mg/dL AST (14-36) U/L ALT (6-35) U/L Alkaline Phosphatase (38-126) U/L C-Reactive Protein (<1.0) mg/dL Total Protein (6.3-8.2) g/dL Albumin (3.5-5.1) g/dL Lipase (23-300) U/L Urine Color Yellow (Yellow) Urine Appearance Clear (Clear) Urine pH 7.0 (5.0-9.0) Ur Specific [place] 1.011 (1.001-1.035) Urine Protein Negative (Negative) mg/dL Urine Glucose (UA) Negative (Negative) mg/dL Urine Ketones Negative (Negative) mg/dL Ur Blood (Man) 3+ H (Negative) Urine Nitrate Negative (Negative) Urine Bilirubin Negative (Negative) Urine Urobilinogen 0.2 (<2.0) mg/dL Leukocyte Esterase Rfl Negative (Negative) STEVE/UL Urine RBC 21-50 H (0-2) /hpf Urine WBC 0-5 (0-3) /hpf Ur Squamous Epith Cells None seen (Few) /hpf Urine Bacteria None seen /hpf Urine Casts 0-2 POC Urine HCG, Qual (Negative) Urine Opiates Screen Positive A (Negative) Urine Methadone Screen Negative (Negative) Ur Barbiturates Screen Negative (Negative) Ur Phencyclidine Scrn Negative (Negative) Ur Amphetamine Screen Negative (Negative) U Benzodiazepines Scrn Negative (Negative) Urine Cocaine Screen Negative (Negative) U Cannabinoids Screen Negative (Negative) Ethyl Alcohol (<10) mg/dL <Samantha Mathur MD - Last Filed: 02/28/25 09:56> Imaging Data Attestation: I personally reviewed and interpreted this imaging study as follows: <Danica Jiménez APRN - Last Filed: 02/28/25 02:15> Radiologist's impression: ITS Impressions Abdomen X-Ray 02/28/25 05:49 Impression: 1: Mild right hydronephrosis. Abdomen/Pelvis CT 02/28/25 05:55 Impression: 5 mm right UVJ stone with mild right hydroureteronephrosis. 4 mm nonobstructing left renal stone. Consulted urology, Dr. Osorio. He advised pt receive a KUB and remain an NPO. <Danica Jiménez APRN - Last Filed: 02/28/25 02:15> ITS Impressions Abdomen X-Ray 02/28/25 05:49 Impression: 1: Mild right hydronephrosis. Abdomen/Pelvis CT 02/28/25 05:55 Impression: 5 mm right UVJ stone with mild right hydroureteronephrosis. 4 mm nonobstructing left renal stone. <Samantha Mathur MD - Last Filed: 02/28/25 09:56> Discharge Plan Discharge Clinical Impression: Right ureteral calculus <Danica Jiménez APRN - Last Filed: 02/28/25 02:15> Patient Disposition: Still a Patient <Danica Jiménez APRN - Last Filed: 02/28/25 02:15> Condition: Stable <Danica Jiménez APRN - Last Filed: 02/28/25 02:15>
[2025-02-27 19:29] LABS: Alanine Aminotransferase 16 U/L (6-35); Albumin Level 4.7 g/dL (3.5-5.1); Alkaline Phosphatase 91 U/L (38-126); Anion Gap 10 mmol/L (4-12); Aspartate Amino Transferase 26 U/L (14-36); Bilirubin,Total 0.3 mg/dL (0.2-1.3); Blood Urea Nitrogen 17 mg/dL (7-17); Calcium 9.8 mg/dL (8.4-10.2); Carbon Dioxide 26 mmol/L (22-30); Chloride 102 mmol/L (98-107); Estimated CRCL calculation 101 ml/min; Estimated Glomerular Filt Rate > 60; Glucose 102 mg/dL (65-110); Lipase 46 U/L (23-300); Potassium 3.9 mmol/L (3.4-5.0); Sodium 138 mmol/L (137-145); Total Protein 8.8 g/dL (6.3-8.2)
[2025-02-27] MEDS: ONDANSETRON INJ 4 MG/2 ML VIAL IV PUSH (19:31)
[2025-02-27] MEDS: SODIUM CHLORIDE 0.9% IV 1,000 ML 999 ML IV CONT ×3 (19:31→22:50)
[2025-02-27] MEDS: MORPHINE SULFATE (*CRX) 4 MG/ML INJ IV PUSH (19:33)
--- OUTSIDE RECORDS SUMMARY | 2025-02-27 19:48 | XMS_ITS | Clinical Summary ---
Author Organization [facility] Address [address] [place] [address] Phone Care Team Providers Care Inbound Sales Representative Name Role Phone Laura Sinha PAC Primary Care Provider [phone] Lora Ryan GATEHOUSE ATTENDANT, VASCULAR SURGERY PHYSICIAN Unavailable [phone] Allergies Active Allergy Reactions Criticality Noted Date [...] complete this topic Insurance [employer] Care Teams Inbound Sales Representative Relationship Specialty Start Date End Date Laura Sinha, PAC [address] [place] [address] PCP - General Physician Nutrition Assistant 06/01/21 Lora Ryan, GATEHOUSE ATTENDANT, VASCULAR SURGERY PHYSICIAN [address] [place] [address] Nurse Practitioner Advanced Practice Nurse 08/16/22
--- OUTSIDE RECORDS SUMMARY | 2025-02-27 19:48 | XMS_ITS | Clinical Summary ---
Author Organization [facility] Address [address] [place] [address] Care Team Providers Care Laundry Tech Name Role Phone Angelito Tapia MD Primary Care Provider [phone] Source Comments [facility],non-owned Affiliates and Associated Physician Practices is amultiple site organization consisting of ambulatory clinics and hospital sitesin [place], [place], [place] and [place]. This disclosure is being madepursuant to the Care Everywhere program and may not contain all information available regarding this patient. Last updated 18.[facility] Allergies Active Allergy Reactions Criticality Noted Date [...] patient's age to complete this [place] [address] [facility] [employer] Care Teams Laundry Tech Relationship Specialty Start Date End Date Angelito Tapia MD [address] [place] [id number] PCP - General 12/14/18
[2025-02-27 20:55] LABS: CRP 1.8 mg/dL (<1.0)
[2025-02-27 20:57] LABS: INR 1.1; Prothrombin Time 14.4 Seconds (11.1-14.7)
[2025-02-27 20:58] LABS: Partial Thromboplastin Time 33.8 Seconds (22.3-36.8)
[2025-02-27] MEDS: HYDROmorphone HCL INJ (*CRX) 2 MG/ML VIAL 0.5 MG IV PUSH (21:44)
[2025-02-27 23:10] LABS: Add Urine Microscopic? YES; Appearance Urine Clear (Clear); Glucose Urine UA Negative (Negative); Leukocyte Esterase Ur Negative LEU/UL (Negative); Nitrate Urine Negative (Negative); Non Pathogenic Casts 0-2; Specific Grav Ur 1.011 (1.001-1.035)
[2025-02-28] VITALS (10 sets, daily range): BP systolic 95–109; BP diastolic 50–72; PULSE 58–97; RESP 12–20; TEMP 36.1–36.6; O2SAT 93–99
[2025-02-28 00:22] LABS: Cannabinoid Screen Urine Negative (Negative)
[2025-02-28] MEDS: ONDANSETRON INJ 4 MG/2 ML VIAL IV PUSH ×4 (02:07→18:34)
[2025-02-28] MEDS: SODIUM CHLORIDE 0.9% IV 1,000 ML 125 ML IV CONT ×2 (03:24→15:05)
--- NOTE | 2025-02-28 03:56 | P.HP_ITS ---
H&P: HPI History of Present Illness Date/Time: 02/28/25 03:56 Chief Complaint: Right lower abdominal pain Narrative: 29-year-old female with a past medical history morbid obesity, cholecystectomy and prior kidney stones who presented to the ER via private vehicle due to right lower abdominal pain. The patient reported that the pain occurred when she went to lay down and take a nap after work. It was in the right lower quadrant and was unrelieved despite trying to take a hot bath. She did have a history of prior kidney stones about 10 years ago but reported that this pain felt different due to its location. She denied any right posterior flank pain. She stated the pain was colicky in nature in 10 in intensity. She had some associated nausea and vomiting. Her emesis was clear to yellow in color without hematemesis or coffee-ground emesis. She denied any changes in bowel habits with her last normal bowel movement on the morning of the being the normally formed. She had reported some urinary pressure to the ER provider but denied any urinary urgency, increased frequency or hematuria. She received morphine and 2 doses of Dilaudid in the ER. By the time patient arrived the medical floor she was completely pain-free. She received a 30 mL/kilos fluid bolus and Zofran as well. Her nausea has subsequently completely resolved. Imaging in the ER demonstrated a 4 mm UVJ obstructing stone with mild hydronephrosis. KUB was also performed I do not visualize the stone on imaging although patient's collecting system is visualized due to IV contrast. Radiologic interpretation is pending for the KUB. The patient reports that she has had 1 other kidney stone about 10 years ago that she was able to pass on her own. She reports that she only drinks soda about once a week. She denies any significant caffeine intake. Review of Systems 2 Review of Systems: 10 systems were reviewed with pertinent positives and negatives per HPI. Except as documented in the HPI, all other systems were reviewed and are negative. [facility] Past Medical History Medical History (Updated 02/28/25 @ 04:03 by Jessica Gabriel DO) Obesity, morbid, BMI 40.0-49.9 Kidney stones Surgical History Surgical History (Updated 02/28/25 @ 04:03 by Jessica Gabriel DO) History of laparoscopic cholecystectomy History of tonsillectomy and adenoidectomy Family History Family History (Updated 02/28/25 @ 04:04 by Jessica Gabriel DO) Father Kidney stones Diabetes mellitus Social History Social History (Updated 02/28/25 @ 04:05 by Jessica Gabriel DO) Social History: Patient is single and lives with her niece and a friend. She does not smoke drink or use illicit substances. She works at an [employer]. Code status: Full code Surrogate decision maker: Bernie Reed (mother) Smoking status: Never smoker Second hand tobacco smoke exposure: No Alcohol intake: never Substance use: never Substance use type: does not use Lack of Transportation: YES Lack of Food: Never True Current Housing: I Have Housing Concerned About Future Housing: No Difficulty Paying Gas/Electric Bills: No Difficulty Paying for Meds: No Currently Unemployed: No Education: High School Diploma/GED Difficulty w/ Childcare or Family Care: No Spiritual care concerns: No Meds Home Medications and Allergies Home Medications ?Medication ?Instructions ?Recorded ?Confirmed ?Type No Home Medications 02/28/25 02/28/25 History Allergies Allergy/AdvReac Type Severity Reaction Status Date / Time AMOXICILLIN TRIHYDRATE Allergy Severe Rash Uncoded 02/27/25 18:00 Vital Signs Vital Signs - 24 hr 02/27/25 17:58 02/28/25 00:26 02/28/25 03:30 Temperature 97.6 F Pulse Rate 97 65 Respiratory Rate 20 18 Blood Pressure 119/78 109/62 Pulse Oximetry 98 95 Oxygen Delivery Room Air Room Air 02/28/25 03:33 Temperature 97 F L Pulse Rate 97 Respiratory Rate 18 Blood Pressure 107/63 Pulse Oximetry 97 Oxygen Delivery Exam 2 Narrative: Weight 119.1 kg BMI 41.1 Const: Other: Obese, no acute distress, appears stated age HENMT: Other: Mucous membranes are moist, no oral pharyngeal erythema, crowded posterior oropharynx Eyes: Other: Pupils are equal and reactive, no scleral icterus, no conjunctival pallor Neck: Other: Large neck circumference, no lymphadenopathy, no JVD Resp: Other: Clear to auscultation bilaterally, no increased work of breathing Cardio: Other: Regular rate, regular rhythm, 2+ bilateral radial pedal pulses GI: Other: Soft, nontender, nondistended, positive bowel sounds Back/Spine/Pelvis: Other: No CVA tenderness Skin: Other: Mild pallor, non jaundice Neuro: Other: Alert oriented, speech is clear, no facial asymmetry Extrem: Other: No clubbing, cyanosis or edema, moves all extremities equally Psych: Other: Appropriate mood and affect, pleasant and cooperative, judgment and insight intact H&P: Results Labs Labs: Laboratory Tests 02/27/25 19:03 02/27/25 19:03 02/27/25 02/27/25 02/27/25 19:01 19:03 20:20 WBC 13.3 H RBC 5.51 H Hgb 13.4 Hct 43.8 MCV 79.5 L MCH 24.3 L MCHC 30.6 L RDW 14.3 Plt Count 287 MPV 10.2 Immature Gran % (Auto) 0.4 Neut % (Auto) 77.0 H Lymph % (Auto) 15.7 L [place] % (Auto) 5.9 Eos % (Auto) 0.6 Baso % (Auto) 0.4 Lymph # (Auto) 2.09 [place] # (Auto) 0.8 H Eos # (Auto) 0.1 Baso # (Auto) 0.1 Abs Immat Gran (auto) 0.06 H Absolute Neuts (auto) 10.3 H Absolute Nucleated RBC 0.000 Nucleated RBC % 0.0 PT 14.4 INR 1.1 APTT 33.8 Sodium 138 Potassium 3.9 Chloride 102 Carbon Dioxide 26 Anion Gap 10 BUN 17 Creatinine 0.95 Estim Creat Clear Calc 101 Estimated GFR > 60 Glucose 102 Lactic Acid 1.2 Calcium 9.8 Total Bilirubin 0.3 AST 26 ALT 16 Alkaline Phosphatase 91 C-Reactive Protein 1.8 H Total Protein 8.8 H Albumin 4.7 Lipase 46 Urine Color Urine Appearance Urine pH Ur Specific [place] Urine Protein Urine Glucose (UA) Urine Ketones Ur Blood (Man) Urine Nitrate Urine Bilirubin Urine Urobilinogen Leukocyte Esterase Rfl Urine RBC Urine WBC Ur Squamous Epith Cells Urine Bacteria Urine Casts POC Urine HCG, Qual Negative Urine Opiates Screen Urine Methadone Screen Ur Barbiturates Screen Ur Phencyclidine Scrn Ur Amphetamine Screen U Benzodiazepines Scrn Urine Cocaine Screen U Cannabinoids Screen Ethyl Alcohol < 10 02/27/25 22:59 WBC RBC Hgb Hct MCV MCH MCHC RDW Plt Count MPV Immature Gran % (Auto) Neut % (Auto) Lymph % (Auto) [place] % (Auto) Eos % (Auto) Baso % (Auto) Lymph # (Auto) [place] # (Auto) Eos # (Auto) Baso # (Auto) Abs Immat Gran (auto) Absolute Neuts (auto) Absolute Nucleated RBC Nucleated RBC % PT INR APTT Sodium Potassium Chloride Carbon Dioxide Anion Gap BUN Creatinine Estim Creat Clear Calc Estimated GFR Glucose Lactic Acid Calcium Total Bilirubin AST ALT Alkaline Phosphatase C-Reactive Protein Total Protein Albumin Lipase Urine Color Yellow Urine Appearance Clear Urine pH 7.0 Ur Specific [place] 1.011 Urine Protein Negative Urine Glucose (UA) Negative Urine Ketones Negative Ur Blood (Man) 3+ H Urine Nitrate Negative Urine Bilirubin Negative Urine Urobilinogen 0.2 Leukocyte Esterase Rfl Negative Urine RBC 21-50 H Urine WBC 0-5 Ur Squamous Epith Cells None seen Urine Bacteria None seen Urine Casts 0-2 POC Urine HCG, Qual Urine Opiates Screen Positive A Urine Methadone Screen Negative Ur Barbiturates Screen Negative Ur Phencyclidine Scrn Negative Ur Amphetamine Screen Negative U Benzodiazepines Scrn Negative Urine Cocaine Screen Negative U Cannabinoids Screen Negative Ethyl Alcohol CT of the abdomen pelvis with contrast demonstrated 4 mm distal obstructing UVJ stone with mild hydronephrosis. KUB demonstrated contrast within the collecting system of the right kidney in ureter more so than left I was unable to visualize stone along course of the ureter. Radiologic interpretation pending All imaging and EKGs personally reviewed and interpreted. And unless stated otherwise agree with radiologic and cardiology interpretation. Assessment and Plan Assessment and plan (1) Hydronephrosis with urinary obstruction due to renal calculus: Code(s): N13.2 - Hydronephrosis with renal and ureteral calculous obstruction Status: Acute Plan Patient has had complete resolution of pain, nausea and vomiting associated with obstructing ureteral stone. I am suspicious the patient may have heard he passed the stone into her bladder. She has not yet voided since arriving to the medical floor. Urology has been consulted. The patient is NPO in case she needs cystoscopy in a.m.. Pain medications and nausea medications remain ordered if needed. Will continue maintenance IV fluids. Patient is aware that she needs to strain her urine when she voids. Patient has been admitted as observation status. MEDICAL DECISION MAKING NARRATIVE -Spoke with the ED provider in detail regarding patient's evaluation, workup and management -Patient seen and examined at bedside -Collaborated with patient's nurse at the bedside in detail and addressed all concerns -Labs, electrolytes, radiology, investigations and test results reviewed -ED/Consult/Nursing/Ancilliary notes on the chart reviewed and appreciated -Spoke with patient at bedside and with the patient's friend who was on the phone via speaker phone. Plan was discussed and patient is agreeable with plan. Quality If No VTE Prophylaxis Answer both mechanical and pharmacologic: Reason no mechanical VTE proph: low risk/not indicated Reason no pharmacologic proph: low risk/not indicated Hospitalist MIPS Advance Care Plan I have confirmed that the patient's Advanced Care Plan is present, code status is documented, or surrogate decision maker is listed in patient medical record.: Yes Medication Reconciliation I have utilized all available resources to obtain, update and review the patients current medications (includes all prescriptions, OTC, herbals, cannabis, and nutritional supplements).: Yes
--- NOTE | 2025-02-28 07:34 | PM.IMPN ---
Progress Note: A&P Assessment and Plan (1) Hydronephrosis with urinary obstruction due to renal calculus: Code(s): N13.2 - Hydronephrosis with renal and ureteral calculous obstruction Status: Acute Plan Presented with RLQ pain that started while she was lying down for a nap. Urology consulted, appreciate recommendations 02/28 CT Abd/Pelvis showed 5 mm right UVJ stone with mild right hydroureteronephrosis. 4 mm nonobstructing left renal stone. Having pain this morning but improved after Dilaudid. No nausea/vomiting today Voiding and no dysuria. UA negative for infection. --NPO for cystoscopy, continuing fluids Time Spent With Patient Time: 57 minutes Subjective Date/time seen: 02/28/25 07:34 Interval history: Came in for right lower abdominal pain, kidney stone on imaging Pain improved this morning after IV dilaudid Has been straining urine and no stones Urology consulted. UA negative for infection Review of Systems Review of Systems: 10 systems were reviewed with pertinent positives and negatives per HPI. Except as documented in the HPI, all other systems were reviewed and are negative. Exam Narrative: General - Awake and alert. No acute distress Eyes - PERRLA, EOM intact ENT - No thrush, No erythema Neck - No noticeable or palpable swelling Lymph Nodes - No lymphadenopathy Cardiovascular - RRR no m/r/g, no JVD Lungs: Clear to auscultation, No wheezing, use of accessory muscles, no crackles Skin - Skin warm and dry, no wounds or rashes Abdomen - Normal bowel sounds, abdomen soft and nontender Extremities - No edema, cyanosis or clubbing Musculoskeletal - 5/5 strength, normal range of motion, no swollen or erythematous joints. Neurological ? Alert and oriented x 3, CN 2-12 grossly intact. Psych: Normal mood and affect Objective Data Vital Signs Vital Signs: Vital Signs - 24 hr 02/27/25 17:58 02/28/25 00:26 02/28/25 03:30 Temperature 97.6 F Pulse Rate 97 65 Respiratory Rate 20 18 Blood Pressure 119/78 109/62 Pulse Oximetry 98 95 Oxygen Delivery Room Air Room Air 02/28/25 03:33 02/28/25 05:39 Temperature 97 F L 97.1 F L Pulse Rate 97 71 Respiratory Rate 18 20 Blood Pressure 107/63 96/50 L Pulse Oximetry 97 99 Oxygen Delivery Intake/Output Intake/Output: Intake & Output 02/25/25 02/26/25 02/27/25 02/28/25 23:59 23:59 23:59 23:59 Intake Total 3000 Balance 3000 Meds/Results Medications: Active Medications Generic Name Dose Route Start Last Admin Trade Name Freq PRN Reason Stop Dose Admin Hydromorphone HCl 0.5 mg 02/28/25 02:13 Hydromorphone Hcl Inj (*Crx) 2 Mg/Ml Vial IV PUSH Q4H PRN Pain Rated 7-10 Sodium Chloride 1,000 mls @ 125 mls/hr 02/28/25 02:15 02/28/25 03:24 Normal Saline Iv IV CONT 125 mls/hr .Q8H DEWEY Administration Ondansetron HCl 4 mg 02/28/25 02:13 Ondansetron Inj 4 Mg/2 Ml Vial IV PUSH Q4H PRN Nausea Radiology Results: ITS Impressions Abdomen X-Ray 02/28/25 05:49 Impression: 1: Mild right hydronephrosis. Abdomen/Pelvis CT 02/28/25 05:55 Impression: 5 mm right UVJ stone with mild right hydroureteronephrosis. 4 mm nonobstructing left renal stone. Labs Labs: Laboratory Results - last 24 hr 02/27/25 02/27/25 02/27/25 19:01 19:03 20:20 WBC 13.3 H RBC 5.51 H Hgb 13.4 Hct 43.8 MCV 79.5 L MCH 24.3 L MCHC 30.6 L RDW 14.3 Plt Count 287 MPV 10.2 Immature Gran % (Auto) 0.4 Neut % (Auto) 77.0 H Lymph % (Auto) 15.7 L [place] % (Auto) 5.9 Eos % (Auto) 0.6 Baso % (Auto) 0.4 Lymph # (Auto) 2.09 [place] # (Auto) 0.8 H Eos # (Auto) 0.1 Baso # (Auto) 0.1 Abs Immat Gran (auto) 0.06 H Absolute Neuts (auto) 10.3 H Absolute Nucleated RBC 0.000 Nucleated RBC % 0.0 PT 14.4 INR 1.1 APTT 33.8 Sodium 138 Potassium 3.9 Chloride 102 Carbon Dioxide 26 Anion Gap 10 BUN 17 Creatinine 0.95 Estim Creat Clear Calc 101 Estimated GFR > 60 Glucose 102 Lactic Acid 1.2 Calcium 9.8 Total Bilirubin 0.3 AST 26 ALT 16 Alkaline Phosphatase 91 C-Reactive Protein 1.8 H Total Protein 8.8 H Albumin 4.7 Lipase 46 Urine Color Urine Appearance Urine pH Ur Specific [place] Urine Protein Urine Glucose (UA) Urine Ketones Ur Blood (Man) Urine Nitrate Urine Bilirubin Urine Urobilinogen Leukocyte Esterase Rfl Urine RBC Urine WBC Ur Squamous Epith Cells Urine Bacteria Urine Casts POC Urine HCG, Qual Negative Urine Opiates Screen Urine Methadone Screen Ur Barbiturates Screen Ur Phencyclidine Scrn Ur Amphetamine Screen U Benzodiazepines Scrn Urine Cocaine Screen U Cannabinoids Screen Ethyl Alcohol < 10 02/27/25 22:59 WBC RBC Hgb Hct MCV MCH MCHC RDW Plt Count MPV Immature Gran % (Auto) Neut % (Auto) Lymph % (Auto) [place] % (Auto) Eos % (Auto) Baso % (Auto) Lymph # (Auto) [place] # (Auto) Eos # (Auto) Baso # (Auto) Abs Immat Gran (auto) Absolute Neuts (auto) Absolute Nucleated RBC Nucleated RBC % PT INR APTT Sodium Potassium Chloride Carbon Dioxide Anion Gap BUN Creatinine Estim Creat Clear Calc Estimated GFR Glucose Lactic Acid Calcium Total Bilirubin AST ALT Alkaline Phosphatase C-Reactive Protein Total Protein Albumin Lipase Urine Color Yellow Urine Appearance Clear Urine pH 7.0 Ur Specific [place] 1.011 Urine Protein Negative Urine Glucose (UA) Negative Urine Ketones Negative Ur Blood (Man) 3+ H Urine Nitrate Negative Urine Bilirubin Negative Urine Urobilinogen 0.2 Leukocyte Esterase Rfl Negative Urine RBC 21-50 H Urine WBC 0-5 Ur Squamous Epith Cells None seen Urine Bacteria None seen Urine Casts 0-2 POC Urine HCG, Qual Urine Opiates Screen Positive A Urine Methadone Screen Negative Ur Barbiturates Screen Negative Ur Phencyclidine Scrn Negative Ur Amphetamine Screen Negative U Benzodiazepines Scrn Negative Urine Cocaine Screen Negative U Cannabinoids Screen Negative Ethyl Alcohol Hospitalist MIPS Advance Care Plan I have confirmed that the patient's Advanced Care Plan is present, code status is documented, or surrogate decision maker is listed in patient medical record.: Yes Medication Reconciliation I have utilized all available resources to obtain, update and review the patients current medications (includes all prescriptions, OTC, herbals, cannabis, and nutritional supplements).: Yes
--- NOTE | 2025-02-28 08:08 | P.CONUR_ITS ---
Assessment and Plan Assessment and plan (1) Right ureteral calculus: Code(s): N20.1 - Calculus of ureter Status: Acute Assessment and Plan: Will see how she does clinically this morning. If does not pass stone will proceed with cystoscopy, right retrograde, right ureteroscopy with stone extraction, possible laser, stent placement this afternoon. Urology Consult Note HPI Date Seen: 02/28/25 Time Seen: 08:08 Requesting Physician: Jessica Gabriel DO Primary Care Provider: [employer] Consult Narrative Reason for consult: 4 mm right UVJ calculus with hydronephrosis Narrative: Cassius New is a 29 year old female presented with right lower quadrant flank pain. She was evaluated in the emergency room and found to have a 4-4.5 mm right UVJ stone with hydronephrosis. Her pain was poorly controlled in the emergency room she was admitted for IV fluids and further management. Denies any prior history of stones. No fevers. Urinalysis is negative. Her father was on the phone during the conversation and evaluation this morning. Review of Systems 2 Review of Systems: All systems reviewed & are unremarkable except as noted in HPI and below PMFSH Past Medical History Medical History Obesity, morbid, BMI 40.0-49.9 Kidney stones Surgical History Surgical History History of laparoscopic cholecystectomy History of tonsillectomy and adenoidectomy Family History Family History Father Kidney stones Diabetes mellitus Social History Social History Social History: Patient is single and lives with her niece and a friend. She does not smoke drink or use illicit substances. She works at an [employer] store. Code status: Full code Surrogate decision maker: Bernie Reed (mother) Smoking status: Never smoker Second hand tobacco smoke exposure: No Alcohol intake: never Substance use: never Substance use type: does not use Lack of Transportation: YES Lack of Food: Never True Current Housing: I Have Housing Concerned About Future Housing: No Difficulty Paying Gas/Electric Bills: No Difficulty Paying for Meds: No Currently Unemployed: No Education: High School Diploma/GED Difficulty w/ Childcare or Family Care: No Spiritual care concerns: No Meds Home Medications and Allergies Home Medications ?Medication ?Instructions ?Recorded ?Confirmed ?Type No Home Medications 02/28/25 02/28/25 History Allergies Allergy/AdvReac Type Severity Reaction Status Date / Time AMOXICILLIN TRIHYDRATE Allergy Severe Rash Uncoded 02/27/25 18:00 Vital Signs Vital Signs - 24 hr 02/27/25 17:58 02/28/25 00:26 02/28/25 03:30 Temperature 36.4 C Pulse Rate 97 65 Respiratory Rate 20 18 Blood Pressure 119/78 109/62 Pulse Oximetry 98 95 Oxygen Delivery Room Air Room Air 02/28/25 03:33 02/28/25 05:39 Temperature 36.1 C L 36.2 C L Pulse Rate 97 71 Respiratory Rate 18 20 Blood Pressure 107/63 96/50 L Pulse Oximetry 97 99 Oxygen Delivery Exam 2 Const: General: cooperative and no acute distress Resp: Effort & Inspection: normal respiratory effort Cardio: Rate: regular rate Rhythm: regular rhythm Results Labs 02/27/25 19:03 02/27/25 19:03 Labs: Short CBC 02/27/25 Range/Units 19:03 WBC 13.3 H (4.5-10.0) K/mm3 Hgb 13.4 (12.0-15.0) g/dL Hct 43.8 (37.0-47.0) % Plt Count 287 (150-375) k/mm3 BMP 02/27/25 19:03 Sodium 138 Potassium 3.9 Chloride 102 Carbon Dioxide 26 BUN 17 Creatinine 0.95 Glucose 102 Calcium 9.8 Liver Function 02/27/25 Range/Units 19:03 Total Bilirubin 0.3 (0.2-1.3) mg/dL AST 26 (14-36) U/L ALT 16 (6-35) U/L Alkaline Phosphatase 91 (38-126) U/L Albumin 4.7 (3.5-5.1) g/dL Urine 02/27/25 Range/Units 22:59 Urine Color Yellow (Yellow) Urine Appearance Clear (Clear) Urine pH 7.0 (5.0-9.0) Ur Specific [place] 1.011 (1.001-1.035) Urine Protein Negative (Negative) mg/dL Urine Glucose (UA) Negative (Negative) mg/dL
--- NOTE | 2025-02-28 08:11 | WPDHPUPDATE1 ---
History and Physical Update Update Date/Time: 02/28/25 08:11 History and Physical has been reviewed, including an updated exam of the patient. There are NO changes in the patient's condition. Risks, benefits, and alternatives have been discussed and questions answered. Patient agrees to proceed with procedure.
[2025-02-28] MEDS: HYDROmorphone HCL INJ (*CRX) 2 MG/ML VIAL 0.5 MG IV PUSH ×3 (09:58→18:13)
--- NOTE | 2025-02-28 12:22 | P.PNAN_ITS ---
Anes - Initial Pre Proc Eval Procedure: Operation Date: 02/28/25 12:30 Proposed Procedures p Cystoscopy, Right Ureteroscopy, Possible Right Retrograde Pyelogram, Possible Right Stone Extraction, Possible Right Stent Placement, Possible Holmium Laser Procedure - Jeovanny Osorio MD Date/Time: 02/28/25 12:22 Surgeon: Jessica Gabriel DO Pre Op Diagnosis: Obstructing kidney stone, Hydronephrosis, R kidney Patient Data Age: 29 Gender: F Height: 1.7 m Weight: 119.1 kg Last Vital Signs Temp 97.1 F L 02/28/25 05:39 Pulse 71 02/28/25 05:39 Resp 20 02/28/25 05:39 BP 96/50 L 02/28/25 05:39 Pulse Ox 99 02/28/25 05:39 O2 Del Method Room Air 02/28/25 03:30 Allergies Allergy/AdvReac Type Severity Reaction Status Date / Time AMOXICILLIN TRIHYDRATE Allergy Severe Rash Uncoded 02/28/25 11:48 Home Medications ?Medication ?Instructions ?Recorded ?Confirmed ?Type No Home Medications 02/28/25 02/28/25 History Laboratory Tests 02/27/25 02/27/25 02/27/25 19:01 19:03 20:20 WBC 13.3 H K/mm3 (4.5-10.0) RBC 5.51 H M/mm3 (4.2-5.4) Hgb 13.4 g/dL (12.0-15.0) Hct 43.8 % (37.0-47.0) MCV 79.5 L fl (80-100) MCH 24.3 L pg (26-34) MCHC 30.6 L g/dl (32-36) RDW 14.3 % (11.5-14.5) Plt Count 287 k/mm3 (150-375) MPV 10.2 fl (7.4-10.4) Immature Gran % (Auto) 0.4 % (0-0.5) Neut % (Auto) 77.0 H % (45.5-73.1) Lymph % (Auto) 15.7 L % (18.3-44.2) Tripp % (Auto) 5.9 % (2.6-8.5) Eos % (Auto) 0.6 % (0-4.4) Baso % (Auto) 0.4 % (0.2-1.2) Lymph # (Auto) 2.09 K/mm3 (0.9-3.2) Tripp # (Auto) 0.8 H K/mm3 (0.1-0.6) Eos # (Auto) 0.1 K/mm3 (0-0.3) Baso # (Auto) 0.1 K/mm3 (0.0-0.1) Abs Immat Gran (auto) 0.06 H K/mm3 (0.00-0.031) Absolute Neuts (auto) 10.3 H K/mm3 (1.3-6.7) Absolute Nucleated RBC 0.000 K/mm3 (0.0-0.012) Nucleated RBC % 0.0 % (0.0-0.2) PT 14.4 Seconds (11.1-14.7) INR 1.1 APTT 33.8 Seconds (22.3-36.8) Sodium 138 mmol/L (137-145) Potassium 3.9 mmol/L (3.4-5.0) Chloride 102 mmol/L (98-107) Carbon Dioxide 26 mmol/L (22-30) Anion Gap 10 mmol/L (4-12) BUN 17 mg/dL (7-17) Creatinine 0.95 mg/dL (0.7-1.0) Estim Creat Clear Calc 101 ml/min Estimated GFR > 60 (59 - ) Glucose 102 mg/dL (65-110) Lactic Acid 1.2 mmol/L (0.7-2.0) Calcium 9.8 mg/dL (8.4-10.2) Total Bilirubin 0.3 mg/dL (0.2-1.3) AST 26 U/L (14-36) ALT 16 U/L (6-35) Alkaline Phosphatase 91 U/L (38-126) C-Reactive Protein 1.8 H mg/dL (<1.0) Total Protein 8.8 H g/dL (6.3-8.2) Albumin 4.7 g/dL (3.5-5.1) Lipase 46 U/L (23-300) Urine Color Urine Appearance Urine pH Ur Specific [place] Urine Protein Urine Glucose (UA) Urine Ketones Ur Blood (Man) Urine Nitrate Urine Bilirubin Urine Urobilinogen Leukocyte Esterase Rfl Urine RBC Urine WBC Ur Squamous Epith Cells Urine Bacteria Urine Casts POC Urine HCG, Qual Negative (Negative) Urine Opiates Screen Urine Methadone Screen Ur Barbiturates Screen Ur Phencyclidine Scrn Ur Amphetamine Screen U Benzodiazepines Scrn Urine Cocaine Screen U Cannabinoids Screen Ethyl Alcohol < 10 mg/dL (<10) 02/27/25 22:59 WBC RBC Hgb Hct MCV MCH MCHC RDW Plt Count MPV Immature Gran % (Auto) Neut % (Auto) Lymph % (Auto) Tripp % (Auto) Eos % (Auto) Baso % (Auto) Lymph # (Auto) Tripp # (Auto) Eos # (Auto) Baso # (Auto) Abs Immat Gran (auto) Absolute Neuts (auto) Absolute Nucleated RBC Nucleated RBC % PT INR APTT Sodium Potassium Chloride Carbon Dioxide Anion Gap BUN Creatinine Estim Creat Clear Calc Estimated GFR Glucose Lactic Acid Calcium Total Bilirubin AST ALT Alkaline Phosphatase C-Reactive Protein Total Protein Albumin Lipase Urine Color Yellow (Yellow) Urine Appearance Clear (Clear) Urine pH 7.0 (5.0-9.0) Ur Specific [place] 1.011 (1.001-1.035) Urine Protein Negative mg/dL (Negative) Urine Glucose (UA) Negative mg/dL (Negative) Urine Ketones Negative mg/dL (Negative) Ur Blood (Man) 3+ H (Negative) Urine Nitrate Negative (Negative) Urine Bilirubin Negative (Negative) Urine Urobilinogen 0.2 mg/dL (<2.0) Leukocyte Esterase Rfl Negative STEVE/UL (Negative) Urine RBC 21-50 H /hpf (0-2) Urine WBC 0-5 /hpf (0-3) Ur Squamous Epith Cells None seen /hpf (Few) Urine Bacteria None seen /hpf Urine Casts 0-2 POC Urine HCG, Qual Urine Opiates Screen Positive A (Negative) Urine Methadone Screen Negative (Negative) Ur Barbiturates Screen Negative (Negative) Ur Phencyclidine Scrn Negative (Negative) Ur Amphetamine Screen Negative (Negative) U Benzodiazepines Scrn Negative (Negative) Urine Cocaine Screen Negative (Negative) U Cannabinoids Screen Negative (Negative) Ethyl Alcohol Patient hx anesthesia problems: none Family hx anesthesia problems: none Results Review: All pre-operative results and documents have been reviewed as part of the pre- operative evaluation. [facility] Past Medical History Medical History Obesity, morbid, BMI 40.0-49.9 Kidney stones Surgical History Surgical History History of laparoscopic cholecystectomy History of tonsillectomy and adenoidectomy Family History Family History Father Kidney stones Diabetes mellitus Social History Social History Social History: Patient is single and lives with her niece and a friend. She does not smoke drink or use illicit substances. She works at an [employer]. Code status: Full code Surrogate decision maker: Bernie Reed (mother) Smoking status: Never smoker Second hand tobacco smoke exposure: No Alcohol intake: never Substance use: never Substance use type: does not use Lack of Transportation: YES Lack of Food: Never True Current Housing: I Have Housing Concerned About Future Housing: No Difficulty Paying Gas/Electric Bills: No Difficulty Paying for Meds: No Currently Unemployed: No Education: High School Diploma/GED Difficulty w/ Childcare or Family Care: No Spiritual care concerns: No Anes - Eval Final PreProcedure Day of Procedure 02/28/25 12:22 Patient weight: morbidly obese Heart: regular rate and rhythm Lungs: clear to auscultation Airway: Mallampati scale class II Neurological: alert and oriented Last oral intake: >/= 8 hours ASA classification: III Emergent: no Anesthetic plan: proceed Anesthesia type and monitoring: general LMA and standard monitoring Results Review: All pre-operative results and documents have been reviewed as part of the pre- operative evaluation. Informed Consent: The patient's anesthetic plan and its attendant risks and benefits were discussed with the patient/family/POA. Questions were solicited and answers provided to the satisfaction of the patient/family/POA.
[2025-02-28] MEDS: ceFAZolin 2 GM in SODIUM CHLORIDE 0.9% IV 50 ML 100 ML IVPB (12:41)
--- NOTE | 2025-02-28 13:02 | S_PTH ---
PATIENT: Cassius New LOC: [id number] U#:[id number] AGE/SX: 29/F ROOM: 330 RE02/28/[address]: Jessica Gabriel DO : 1995 BED: 02 DIS: 03/01/2025 SPEC #: [id number] RECD: 02/28/25 14:36 STATUS: KOSTA REMahendra #: [id number] SUDEEP: 02/28/25 13:[address]: Devon,Jeovanny Sotelo DEPT: [facility] Surgical RECD BY: Sybil Reynolds ENTERED: 02/28/25 14:36 SP TYPE: Surgical OTHR DR: DO Fritz Muniz MD SOCK FOLDER PHYSICIAN Maureen Justice APRN Tissues: A - Stone Procedures: Gross Exam Level 1 Crystalline Analysis
[2025-02-28] MEDS: LIDOCAINE 2% GEL UROJET 10 ML PKG MUCOUS MEM (13:07)
--- NOTE | 2025-02-28 13:08 | W.PM.PROC2 ---
Procedure Note - Detailed Date of Procedure 02/28/25 Pre-op Diagnosis 4.5 mm right ureteral calculus Post-op Diagnosis Same Procedure Performed Cystoscopy, right retrograde, right ureteroscopy with stone extraction, right ureteral stent placement 4.8 Vincentian contour Surgeon Jeovanny Osorio MD Anesthesia General Description of Procedure Patient was taken to the operative suite correctly identified. Once anesthesia was obtained she was placed in the dorsal lithotomy position and prepped and draped usual sterile fashion. Twenty-two Vincentian scope was inserted into the bladder. There were no tumors noted. Right ureteral orifice was cannulated with a guidewire. I dilated the orifice with an 8/10 dilator. Rigid ureteral scope was inserted. The stone was visualized and grasped with an escape basket. It was retrieved in 1 piece and sent for analysis. Reinspection revealed no residual stones. Pyelogram was then performed to confirm placement of the stent. 4.8 Vincentian contour stent was then placed with the proximal end in the lower pole and the distal in the bladder. Bladder was drained. 2% viscous lidocaine was inserted into the urethra patient is taken recovery stable condition. Patient may be discharged home later this afternoon and follow-up in a week's time for stent removal. This completes dictation. Please send a copy of op note to my office Estimated Blood Loss 0 Drains Yes Packing No Pathology Yes Complications No immediate complications Condition Stable Disposition PACU
[2025-02-28] MEDS: LACTATED RINGERS 1,000 ML 30 ML IV CONT (13:20)
[2025-03-01] MEDS: HYDROmorphone HCL INJ (*CRX) 2 MG/ML VIAL 0.5 MG IV PUSH
[2025-03-01] MEDS: ONDANSETRON INJ 4 MG/2 ML VIAL IV PUSH
[2025-03-01] MEDS: SODIUM CHLORIDE 0.9% IV 1,000 ML 125 ML IV CONT ×2 (00:02→08:02)
[2025-03-01 05:18] VITALS: BP 116/64; PULSE 66; RESP 20; TEMP 36.5; O2SAT 97
--- NOTE | 2025-03-01 06:13 | PC.NURSE ---
Pt transferred from [address] [place] [address] room 248-1 to 3 Med Surg room 330-2 via wheelchair @[id number]. Report received from SCARLETT Hudson in [address] [place] [address]. Appropriate documentation & belongings brought with pt.
--- NOTE | 2025-03-01 08:04 | PM.DS ---
DS: Admitting Diagnosis Discharge Date 03/01/2025 Admitting Diagnosis Hydronephrosis with urinary obstruction due to renal calculus DS: Discharge Diagnosis Discharge Diagnosis (1) Hydronephrosis with urinary obstruction due to renal calculus: Code(s): N13.2 - Hydronephrosis with renal and ureteral calculous obstruction Status: Acute (2) Post-op pain: Code(s): G89.18 - Other acute postprocedural pain Status: Acute (3) Nausea & vomiting: Code(s): R11.2 - Nausea with vomiting, unspecified Status: Acute DS: Summary Hospital Course Reason for hospitalization: Kidney stone Hospital Course: Cassius New presented for right abdominal pain found to have a kidney stone. Urology consulted and she was taken for a cystoscopy and stone extraction. A right ureteral stent was placed and stone was extracted. Still needing IV opiates overnight post extraction so discharged with 10 tabs of oxycodone 5mg. Also had emesis post procedure/overnight 02/28-03/01 so continued zofran prn. Tolerating a diet prior and drinking fluids well prior to discharge. Reported dysuria that was improving without treatment. UA negative prior to procedure and likely local irritation. Also had right flank pain post procedure that was improving with pain medications. Received 1 dose of ancef perioperatively. She will follow up with urology in a week for stent removal. Status at Discharge Cognitive/behavioral status at discharge: A&Ox4 Time Spent with Patient Time attestation: Total time spent providing and/or coordinating discharge services: 47 minutes Exam Narrative: General - Awake and alert. No acute distress Eyes - PERRLA, EOM intact ENT - No thrush, No erythema Neck - No noticeable or palpable swelling Lymph Nodes - No lymphadenopathy Cardiovascular - RRR no m/r/g, no JVD Lungs: Clear to auscultation, No wheezing, use of accessory muscles, no crackles Skin - Skin warm and dry, no wounds or rashes Abdomen - Normal bowel sounds, abdomen soft and nontender No flank pain to light palpation Extremities - No edema, cyanosis or clubbing Musculoskeletal - 5/5 strength, normal range of motion, no swollen or erythematous joints. Neurological ? Alert and oriented x 3, CN 2-12 grossly intact. Psych: Normal mood and affect DS: Data Data Completed and Pending Pending studies at discharge: Pending at discharge 02/28/25 13:02 Surgical [PTH] Routine Discharge Plan Discharge Attending physician on discharge: Maureen Justice Consulting providers: Fritz Dunn; Maureen Justice; Jeovanny Osorio Discharging Clinician: Maureen Justice Anticipated Discharge Date/Time: 03/01/25 08:17 Patient Disposition: Home Activity: no shower Diet: regular Discharge Instructions: Follow up with Dr. Osorio in 1 week for stent removal. Call [phone] to schedule an appointment You can take acetaminophen and ibuprofen for pain, oxycodone if still having severe pain. Miralax as needed for constipation with opiates. Do not drive while taking opiates Come to the hospital for pain that is suddenly worse, fever over 101, inability to urinate or sudden increase in blood in urine. Patient Instructions: Antibiotic Form Patient Language: Greenlandic Stand Alone Forms: General Discharge Information Follow-up/Referrals: Jeovanny Osorio MD [Physician] - 1 Week Discharge Medications: New polyethylene glycol 3350 [Miralax] 17 gram Powder In Packet 17 g PO QAM PRN (Reason: constipation) Qty: 7 0RF oxycodone 5 mg Tablet 5 mg PO Q4H PRN (Reason: Pain Rated 7-10) 3 Days Qty: 10 0RF ondansetron 4 mg tablet,disintegrating 4 mg PO Q6H PRN (Reason: nausea and vomiting) Qty: 10 0RF acetaminophen 500 mg capsule 1,000 mg PO Q6H PRN (Reason: pain) Qty: 30 0RF ibuprofen 800 mg tablet 800 mg PO TID PRN (Reason: pain) Qty: 10 0RF Date of admission: 02/28/25 02:13 Primary Care Provider: PHYSICIAN,DESTINATION SPECIALIST Admitting Provider: Jessica Gabriel Attending physician on admission: Jessica Gabriel Condition: Stable Hospitalist MIPS Heart Failure (Exclusion) Patient has history of Heart Transplant or Left Ventricular Assistive Device?: No IF YES, STOP HERE Heart Failure (Qualifier) Patient has current or prior documentation of LVEF less than or equal to 40%, or mod/servere depressed LVSF?: No IF NO, STOP HERE
[2025-03-01 08:54] LABS: Hematocrit 34.5 % (37.0-47.0); Hemoglobin 10.6 g/dL (12.0-15.0); Immature Granulocyte Percent A 0.2 % (0-0.5); Lymphocytes Absolute Auto 1.75 K/mm3 (0.9-3.2); Mean Corpuscular HGB Conc 30.7 g/dl (32-36); Mean Corpuscular Hemoglobin 24.7 pg (26-34); Mean Corpuscular Volume 80.2 fl (80-100); Nucleated Red Blood Cells Absolute Auto 0.000 K/mm3 (0.0-0.012); Nucleated Red Blood Cells Perc 0.0 % (0.0-0.2); Platelet Count Result 200 k/mm3 (150-375); Red Blood Count 4.30 M/mm3 (4.2-5.4); White Blood Count 8.3 K/mm3 (4.5-10.0)
[2025-03-01 09:36] LABS: Anion Gap 4 mmol/L (4-12); Blood Urea Nitrogen 7 mg/dL (7-17); Calcium 8.4 mg/dL (8.4-10.2); Carbon Dioxide 27 mmol/L (22-30); Chloride 105 mmol/L (98-107); Estimated CRCL calculation 136 ml/min; Estimated Glomerular Filt Rate > 60; Glucose 125 mg/dL (65-110); Potassium 3.5 mmol/L (3.4-5.0); Sodium 136 mmol/L (137-145)
[2025-03-01] MEDS: oxyCODONE HCL (*CRX) 5 MG TAB IR PO (09:47)
== END 2025-03-01 14:43 | disposition home or self-care (01) ==
LOC: ANHED 19:46 → ANH2MED 02-28 02:26 → ANH3MEDSUR 03-01 05:59
PROVIDERS: Emergency Medicine; Nurse Practitioner Acute Care; Urology; Admitting Provider Internal Medicine; Emergency Provider Registered Nurse; Visit Provider Internal Medicine
PROC: (CPT 52352; principal; 2025-02-28 12:30)
DX: N13.2 Hydronephrosis with renal and ureteral calculous obstruction (principal); E66.01 Morbid (severe) obesity due to excess calories; Z68.41 Body mass index [BMI] 40.0-44.9, adult
CPT/HCPCS: 52332; 36415; 74018; 74177; 74420; 80048; 80053; 80307; 81001; 81025; 82077; 82365; 83605; 83690; 85025; 85610; 85730; 86140; 88300; 96361; 96374; 96375; 99285; J0690; A9270; C1769; C2617; G0378; J1171; J2003; J2250; J2270; J2405; J2704; J3010; J7030; J7120; Q9966; Q9967